=== PATIENT | female | born 1955 | race Caucasian/White ===

== ENCOUNTER 2017-01-21 05:53 | Emergency (ER) | payer OTHER ==
[2017-01-21 05:54] VITALS: BMI 25.6
[2017-01-21] MEDS ORDERED: Sodium Chloride 0.9% 1,000 ML IV ONE (06:11)
--- NOTE | 2017-01-21 06:11 | C.PDOC ---
History Of Present Illness Patient presents to the ER with a complaint of nausea, vomiting, diarrhea, and a dull, aching abdominal pain since night. Patient denies fever and chills. Time Seen by Provider: 01/21/17 06:11 Chief Complaint (Nursing): Abdominal Pain History Per: Patient History/Exam Limitations: no limitations Onset/Duration Of Symptoms: Days (Since night) Current Symptoms Are (Timing): Still Present Context: Other Severity: Moderate Pain Scale Rating Of: 4 Location Of Pain/Discomfort: Epigastric (Mid) Radiation Of Pain To:: None Quality Of Discomfort: Dull, Aching Associated Symptoms: Nausea, Vomiting, Diarrhea. denies: Fever, Chills Exacerbating Factors: None Alleviating Factors: None Recent travel outside of the [place]: No Additional History Per: Family Abnormal Vaginal Bleeding: No Past Medical History Reviewed: Historical Data, Nursing Documentation, Vital Signs Vital Signs: Last Vital Signs Temp 98.0 F 01/21/17 06:03 Pulse 91 H 01/21/17 06:03 Resp 16 01/21/17 06:03 BP 175/97 H 01/21/17 06:03 Pulse Ox 100 01/21/17 06:24 - Medical History PMH: Gastritis Surgical History: Endoscopy Family History: States: No Known Family Hx - Social History Hx Alcohol Use: No Hx Substance Use: No - Immunization History Hx Tetanus Toxoid Vaccination: No Hx Influenza Vaccination: No Hx Pneumococcal Vaccination: No Review Of Systems Constitutional: Negative for: Fever, Chills Eyes: Negative for: Redness ENT: Negative for: Mouth Pain Cardiovascular: Negative for: Chest Pain Respiratory: Negative for: Shortness of Breath Gastrointestinal: Positive for: Nausea, Vomiting, Abdominal Pain (Mid epigastric ), Diarrhea Genitourinary: Negative for: Dysuria Musculoskeletal: Negative for: Back Pain Skin: Negative for: Rash, Lesions, Jaundice, Bruising Neurological: Negative for: Weakness Psych: Negative for: Anxiety Physical Exam - Physical Exam Appears: Non-toxic Skin: Warm, Dry Eye(s): bilateral: Normal Inspection Oral Mucosa: Moist Neck: Supple Chest: Symmetrical, No Tenderness Cardiovascular: Rhythm Regular, No Murmur Respiratory: No Rales, No Rhonchi, No Wheezing Gastrointestinal/Abdominal: Soft, Tenderness (Mid epigastric) Back: Normal Inspection Extremity: Normal ROM Extremity: Bilateral: Atraumatic, Normal Color And Temperature Neurological/Psych: Oriented x3, Normal Speech, Normal Cognition Gait: Steady ED Course And Treatment O2 Sat by Pulse Oximetry: 100 (room air) Pulse Ox Interpretation: Normal Progress Note: Blood work and urinalysis ordered. Pepcid IVP, zofran IVP, and IV fluids administered. Disposition Counseled Patient/Family Regarding: Studies Performed, Diagnosis - Disposition Disposition Time: 06:11 Condition: FAIR - Clinical Impression Clinical Impression: Abdominal pain, Nausea - Scribe Statement The provider has reviewed the documentation as recorded by the Scribbrittany Grullon All medical record entries made by the Yadielibe were at my direction and personally dictated by me. I have reviewed the chart and agree that the record accurately reflects my personal performance of the history, physical exam, medical decision making, and the department course for this patient. I have also personally directed, reviewed, and agree with the discharge instructions and disposition. Physician Patient Turnover Patient Signed Over To: Sona Hines Handoff Comments: pending labs and disposition
[2017-01-21 06:35] LABS: BASO % 0.3 % (0.0-2.0); EOS # 0.2 K/uL (0.0-0.7); EOS % 2.5 % (0.0-4.0); HEMATOCRIT 37.2 % (34.0-47.0); LYMPH # 2.2 K/uL (1.0-4.3); LYMPH % 22.1 % (20.0-40.0); MEAN CELL VOLUME 86.5 fL (81.0-99.0); MEAN CORPUSCULAR HEMOGLOBIN 28.2 pg (27.0-31.0); MEAN CORPUSCULAR HGB CONC 32.5 g/dL (33.0-37.0); MEAN PLATELET VOLUME 7.8 fL (7.2-11.7); MONO # 0.5 K/uL (0.0-0.8); WHITE BLOOD COUNT 9.8 K/uL (4.8-10.8)
[2017-01-21] MEDS ORDERED: Sodium Chloride 0.9% 1,000 ML ONE (06:37)
[2017-01-21 06:48] LABS: CHLORIDE 107 mmol/L (98-107); POTASSIUM 3.8 mmol/L (3.6-5.2); SODIUM 139 mmol/L (132-148)
[2017-01-21 06:50] LABS: ALB/GLOB RATIO 1.2 (1.0-2.1); AST/SGOT 21 U/L (14-36); BILIRUBIN,TOTAL 0.5 mg/dL (0.2-1.3); CARBON DIOXIDE 21 mmol/L (22-30); GFR AFRICAN-AMERICAN > 60; TOTAL PROTEIN 6.6 g/dL (6.3-8.3)
[2017-01-21 06:51] LABS: ALKALINE PHOSPHATASE 84 U/L (38-126); ALT/SGPT 17 U/L (9-52); BLOOD UREA NITROGEN 11 mg/dL (7-17); CALCIUM 8.5 mg/dl (8.6-10.4); GLUCOSE,RANDOM 119 mg/dL (65-105)
[2017-01-21] MEDS ORDERED: Iodixanol 320 MG/ML 100 ML BOTTLE IV ONE (07:46)
[2017-01-21 08:09] LABS: RBC URINE 1 /hpf (0-3); URINE BILIRUBIN NEGATIVE (NEGATIVE); URINE BLOOD NEGATIVE (NEGATIVE); URINE COLOR Straw (YELLOW); URINE GLUCOSE (UA) NORMAL (Normal); URINE KETONE NEGATIVE (NEGATIVE); URINE LEUKOCYTE ESTERASE NEG Leu/uL (Negative); URINE PROTEIN NEGATIVE (NEGATIVE); URINE UROBILINOGEN NORMAL mg/dL (0.2-1.0); WBC URINE 1 /hpf (0-5)
[2017-01-21 08:22] VITALS: RESP 18
--- NOTE | 2017-01-21 09:31 | CT ---
CT abdomen and pelvis History: Mid epigastric abdominal pain Comparison: 02/12/2016 Technique: Multiple contiguous axial images were performed through the abdomen and pelvis with the use of intravenous contrast. Subsequently, sagittal and coronal reformatted images were obtained. This CT exam was performed using one or more of the following dose reduction techniques: Automated exposure control, adjustment of the mA and/or kV according to patient size, and/or use of iterative reconstruction technique. Findings: Mild focal nodularity in the medial aspect of the right middle lobe inferiorly. Bibasilar atelectasis. No pleural or pericardial effusion. Prominent liver with diffuse fatty infiltration. Gallbladder is preserved. Spleen is preserved. Adrenal glands demonstrate a small nodular calcification in the left adrenal gland measuring 1.7 millimeters. Pancreas is preserved. Small hiatal hernia. Right kidney: No calculi or hydronephrosis. Left Kidney: Upper pole 9 millimeter hypoechoic cyst demonstrating a Hounsfield unit attenuation of 17, indeterminate. 7 millimeter nonobstructive mid pole left renal calculus. Mild fullness of the left renal collecting system. Urinary bladder is preserved. Small amount of free fluid within the posterior pelvic cul-de-sac. Mild rectal wall thickening. Under distended portions of the left hemicolon with scattered areas of underdistention of the transverse and left hemicolon. Mild thickening of the cecum and proximal ascending colon. Appendix is within normal limits. Thickening and enhancement of the distal jejunum and ileum most prominent in the left mid abdomen where there is some resultant dilatation of the small bowel in the left upper abdomen measuring up to 3 centimeters. Some fecalization of bowel material is noted within the left upper abdomen. At this level the bowel appears somewhat torturous and looped in appearance. Prominent inflammatory mesenteric fat stranding noted with prominent mesenteric lymph nodes for example in the mid lower abdomen measuring up to 2.2 centimeters and 1.9 centimeters respectively. Degenerative changes in the spine. Impression: Prominent thickening of small bowel loops with edema and enhancement seen within the jejunum and ileum concerning for underlying acute infectious versus inflammatory versus ischemic change. Associated prominent dilatation of small bowel loops seen within the left fabian abdomen extending into the left upper abdomen measuring up to 3 centimeters with associated fecal stasis. This is somewhat tortuous and prominent in a looped configuration. Adjacent inflammatory mesenteric fat stranding. Adjacent prominent mesenteric lymph nodes. Fatty infiltration of the liver. Small hiatal hernia. 7 millimeter nonobstructive left renal calculus. Left renal cyst. Scattered areas of colonic underdistention and or mild thickening. Additional findings as above.
[2017-01-21 10:01] VITALS: BP 122/74; PULSE 72; TEMP 98.1; O2SAT 96
== END 2017-01-21 10:02 | disposition home or self-care (01) ==
LOC: C.ER 05:53
DX: R10.9 Unspecified abdominal pain (principal); R11.0 Nausea
CPT/HCPCS: 74177; 80053; 81001; 83690; 85025; 85610; 85730; 96361; 96374; 96375; 99285; J2405; J7040; Q9967

== ENCOUNTER 2017-05-24 21:36 | Emergency (ER) | payer OTHER ==
[2017-05-24 21:37] VITALS: BMI 25.6
[2017-05-24 21:56] VITALS: RESP 18
[2017-05-24] MEDS ORDERED: Sodium Chloride 0.9% 1,000 ML IV ONE (22:11)
--- NOTE | 2017-05-24 22:23 | C.PDOC ---
History Of Present Illness Patient brought by family c/o abdominal pain and vomiting that started after dinner tonight at 7pm. She is c/o severe epigastric pain with distention. She has no fever and no diarrhea. She had a normal bowel movement at 8pm. She felt well without complaints earlier in the day. She had a similar episode 01/2017 and was evaluated here and diagnosed with gastritis. She denies any associated difficulty breathing or chest pain. She has a history of pelvic endoscopic surgery done in [place] 10 years ago. Time Seen by Provider: 05/24/17 22:07 Chief Complaint (Nursing): Abdominal Pain History Per: Patient, Family History/Exam Limitations: no limitations Onset/Duration Of Symptoms: Hrs Current Symptoms Are (Timing): Still Present Severity: Severe Location Of Pain/Discomfort: Epigastric Radiation Of Pain To:: None Associated Symptoms: Nausea, Vomiting. denies: Fever, Diarrhea Exacerbating Factors: None Alleviating Factors: None Last Bowel Movement: Today Past Medical History Reviewed: Historical Data, Nursing Documentation, Vital Signs Vital Signs: Last Vital Signs Temp 98.9 F 05/24/17 21:54 Pulse 91 H 05/24/17 21:54 Resp 18 05/24/17 21:54 BP 149/95 H 05/24/17 21:54 Pulse Ox 99 05/24/17 22:42 - Medical History PMH: Gastritis Surgical History: Endoscopy Family History: States: Unknown Family Hx - Social History Hx Tobacco Use: No Hx Alcohol Use: No Hx Substance Use: No - Immunization History Hx Tetanus Toxoid Vaccination: No Hx Influenza Vaccination: No Hx Pneumococcal Vaccination: No Review Of Systems Except As Marked, All Systems Reviewed And Found Negative. Gastrointestinal: Positive for: Nausea, Vomiting, Abdominal Pain Physical Exam - Physical Exam Appears: In Acute Distress (moaning in pain) Skin: Normal Color, Warm, Dry Head: Atraumatic Eye(s): bilateral: Normal Inspection, PERRL, EOMI Oral Mucosa: Moist Chest: Symmetrical Cardiovascular: Rhythm Regular Respiratory: Normal Breath Sounds Gastrointestinal/Abdominal: Bowel Sounds, Soft, Tenderness (epigastric), Distention, No Guarding, No Rebound Neurological/Psych: Oriented x3, Normal Speech, Normal Cognition ED Course And Treatment - Laboratory Results Result Diagrams: 05/24/17 22:44 05/24/17 22:44 O2 Sat by Pulse Oximetry: 99 Disposition - Disposition Disposition Time: 00:43 Condition: STABLE Forms: [employer] [facility] (Fijian) - Clinical Impression Clinical Impression: Abdominal pain, Vomiting Physician Patient Turnover Patient Signed Over To: Jewel Sanders Handoff Comments: Pending CT
[2017-05-24] MEDS ORDERED: Iohexol 240 (50 ml) PO ONE (22:44)
[2017-05-24 22:47] LABS: BASO % 0.2 % (0.0-2.0); EOS # 0.2 K/uL (0.0-0.7); EOS % 1.4 % (0.0-4.0); HEMATOCRIT 38.6 % (34.0-47.0); LYMPH # 2.2 K/uL (1.0-4.3); LYMPH % 15.6 % (20.0-40.0); MEAN CELL VOLUME 87.2 fL (81.0-99.0); MEAN CORPUSCULAR HEMOGLOBIN 28.7 pg (27.0-31.0); MEAN CORPUSCULAR HGB CONC 32.9 g/dL (33.0-37.0); MEAN PLATELET VOLUME 7.6 fL (7.2-11.7); MONO # 0.6 K/uL (0.0-0.8); MONO % 4.5 % (0.0-10.0); RED CELL DISTRIBUTION WIDTH 13.8 % (11.5-14.5); WHITE BLOOD COUNT 13.8 K/uL (4.8-10.8)
[2017-05-24] MEDS ORDERED: Sodium Chloride 0.9% 1,000 ML ONE (22:47)
[2017-05-24 22:55] LABS: CHLORIDE 106 mmol/L (98-107); SODIUM 139 mmol/L (132-148)
[2017-05-24 22:56] LABS: POTASSIUM 3.7 mmol/L (3.6-5.2)
[2017-05-24 22:58] LABS: ALB/GLOB RATIO 1.4 (1.0-2.1); ALKALINE PHOSPHATASE 91 U/L (38-126); ALT/SGPT 33 U/L (9-52); AST/SGOT 21 U/L (14-36); BILIRUBIN,TOTAL 0.6 mg/dL (0.2-1.3); BLOOD UREA NITROGEN 9 mg/dL (7-17); CARBON DIOXIDE 21 mmol/L (22-30); GFR AFRICAN-AMERICAN > 60; GLUCOSE,RANDOM 114 mg/dL (65-105); TOTAL PROTEIN 7.1 g/dL (6.3-8.3)
[2017-05-24] MEDS ORDERED: Iohexol 240 (50 ml) ONE (23:03)
[2017-05-24] MEDS ORDERED: Iodixanol 320 MG/ML 100 ML BOTTLE IV ONE (23:33)
[2017-05-25 00:54] LABS: RBC URINE 10 /hpf (0-3); URINE BILIRUBIN NEGATIVE (NEGATIVE); URINE BLOOD 1+ (NEGATIVE); URINE COLOR Yellow (YELLOW); URINE GLUCOSE (UA) NORMAL (Normal); URINE KETONE NEGATIVE (NEGATIVE); URINE LEUKOCYTE ESTERASE NEG Leu/uL (Negative); URINE PROTEIN NEGATIVE (NEGATIVE); URINE UROBILINOGEN NORMAL mg/dL (0.2-1.0); WBC URINE 1 /hpf (0-5)
--- NOTE | 2017-05-25 02:07 | CT ---
EXAM: CT Abdomen and Pelvis With Intravenous Contrast EXAM DATE/TIME: 05/25/2017 12:13 AM CLINICAL HISTORY: 62 years old, female; Pain; Abdominal pain; Patient HX: 01-21-17; Additional info: Abd pain and weakness TECHNIQUE: Axial computed tomography images of the abdomen and pelvis with intravenous contrast. All CT scans at this facility use one or more dose reduction techniques, viz.: automated exposure control; ma/kV adjustment per patient size (including targeted exams where dose is matched to indication; i.e. head); or iterative reconstruction technique. Coronal and sagittal reformatted images were created and reviewed. CONTRAST: 100 mL of [id number] administered intravenously. COMPARISON: CT - ABD PELVIS IV CONTRAST ONLY 01/21/2017 8:11:24 AM FINDINGS: The liver is decreased in attenuation consistent with fatty infiltration. The spleen is normal. The pancreas is normal. No gallstones. Stable left renal cyst. There are dilated loops of jejunum in the left upper quadrant. The maximally dilated jejunal loop measures 4.5 cm in diameter and is filled with stool. Contrast does not progress beyond this loop. There is a transition from the dilated stool-filled loop to decompressed loops in the left upper pelvis. The transition occurs through a segment of thickened small bowel (axial series 3 images 90- 140). There is a loop of thickened distal ileum (axial series 3 images 135 through 147). There is prominent mucosal enhancement of the thickened jejunal and ileal loops. There are small scattered areas of haziness throughout the mesentery of the pelvis some of which are removed from the thickened loops. Several prominent lymph nodes are noted within the hazy mesentery. There is free fluid in the pelvis There is swirling of the vessels right upper quadrant images 65 through 85 unchanged. A normal appendix is identified axial series 2 images 38 through 45. IMPRESSION: Two segments of thickened small bowel with prominent mucosal enhancement as discussed above. The more proximal area of thickening in the jejunum results in partial obstruction with abrupt caliber change. While infectious/inflammatory process would certainly be possible, neoplasm would also be in differential diagnosis especially given the caliber change and followup is recommended. Scattered mesenteric haziness and lymph nodes throughout the pelvis, some of which are not in close approximation to the thickened loops.
[2017-05-25] MEDS ORDERED: Morphine 4 MG/ML VIAL IV PRN (02:27)
[2017-05-25] MEDS ORDERED: Dextrose 5%/0.45% NS 1,000 ML IV SCH (02:30)
[2017-05-25 03:31] VITALS: BP 101/66; PULSE 80; TEMP 98.5; O2SAT 97
--- NOTE | 2017-05-25 08:32 | RAD ---
PROCEDURE: Radiographs of the chest and abdomen (obstructive series) HISTORY: abd pain COMPARISON: No prior. TECHNIQUE: AP radiograph of the chest, with upright and supine radiographs of the abdomen. FINDINGS: CHEST: Lungs: Clear. Cardiovascular: Normal size heart. No pulmonary vascular congestion. Pleura: No pleural fluid. No pneumothorax. Other findings: None. ABDOMEN AND PELVIS: Bowel: A mid to left upper quadrant regional dilated small bowel loop is present - lumen 3.6 cm. Elsewhere are air-fluid levels in more normal appearing small-bowel loops. There is paucity of bowel gas in the inferior abdomen The gas-filled transverse colon appears normal . Free air: None. Bones: Thoracolumbar spondylosis, mild dextroscoliosis. Sclerotic SI joint arthrosis- iliac sided and bilateral hip arthrosis. Left hemipelvic phleboliths. Other findings: None. IMPRESSION: Mid to distal partial and/or intermittent small bowel obstruction needs to be considered. No complete small bowel obstruction. No free air. Continued close follow-up recommended .
== END 2017-05-25 03:25 | disposition short-term general hospital (02) ==
LOC: C.ER 21:36
DX: R11.10 Vomiting, unspecified (principal); R10.9 Unspecified abdominal pain
CPT/HCPCS: 74022; 74177; 80053; 81001; 83690; 85025; 96361; 96374; 96375; 99284; J2270; J2405; J7040; Q9966; Q9967

== ENCOUNTER 2017-06-19 22:11 | Emergency (ER) | payer OTHER ==
[2017-06-19 22:12] VITALS: BMI 25.6
[2017-06-19 22:29] VITALS: TEMP 97.8
[2017-06-19 22:37] LABS: BASO % 0.1 % (0.0-2.0); EOS % 0.2 % (0.0-4.0); HEMATOCRIT 41.7 % (34.0-47.0); LYMPH # 3.6 K/uL (1.0-4.3); LYMPH % 24.2 % (20.0-40.0); MEAN CELL VOLUME 87.1 fL (81.0-99.0); MEAN CORPUSCULAR HEMOGLOBIN 28.9 pg (27.0-31.0); MEAN CORPUSCULAR HGB CONC 33.2 g/dL (33.0-37.0); MEAN PLATELET VOLUME 7.3 fL (7.2-11.7); MONO # 0.9 K/uL (0.0-0.8); MONO % 5.8 % (0.0-10.0); RED CELL DISTRIBUTION WIDTH 13.7 % (11.5-14.5); WHITE BLOOD COUNT 14.9 K/uL (4.8-10.8)
[2017-06-19 22:42] LABS: RBC URINE 22 /hpf (0-3); TRANSITIONAL EPITHIAL < 1 /hpf (0-3); URINE BACTERIA OCC (<OCC); URINE BILIRUBIN NEGATIVE (NEGATIVE); URINE COLOR Yellow (YELLOW); URINE GLUCOSE (UA) NORMAL (Normal); URINE KETONE TRACE mg/dL (NEGATIVE); URINE LEUKOCYTE ESTERASE 1+ Leu/uL (Negative); URINE PROTEIN 1+ mg/dL (NEGATIVE); URINE UROBILINOGEN NORMAL mg/dL (0.2-1.0); WBC URINE 7 /hpf (0-5)
[2017-06-19 22:43] LABS: URINE BLOOD 2+ (NEGATIVE)
[2017-06-19 22:45] LABS: CHLORIDE 100 mmol/L (98-107)
[2017-06-19 22:46] LABS: POTASSIUM 3.5 mmol/L (3.6-5.2); SODIUM 134 mmol/L (132-148)
[2017-06-19 22:48] LABS: ALB/GLOB RATIO 1.3 (1.0-2.1); ALKALINE PHOSPHATASE 89 U/L (38-126); AST/SGOT 20 U/L (14-36); BILIRUBIN,TOTAL 0.8 mg/dL (0.2-1.3); BLOOD UREA NITROGEN 12 mg/dL (7-17); CARBON DIOXIDE 22 mmol/L (22-30); GFR AFRICAN-AMERICAN > 60; TOTAL PROTEIN 7.7 g/dL (6.3-8.3)
[2017-06-19] MEDS ORDERED: cefTRIAXone IV 1 gm in Dextros 50 ML IVPB ONE ×2 (22:48→22:56)
[2017-06-19 22:49] LABS: ALT/SGPT 29 U/L (9-52); CALCIUM 9.4 mg/dl (8.6-10.4); GLUCOSE,RANDOM 130 mg/dL (65-105)
--- NOTE | 2017-06-19 22:49 | C.PDOC ---
History Of Present Illness Patient presents to the ER with a complaint of abdominal pain, nausea, and vomiting. Patient states she saw Dr. Robert in the morning, she received bentyl, zofran, and protonix with no relief to symptoms. Patient has not been able to tolerate PO; denies fever or chills. Time Seen by Provider: 06/19/17 22:48 Chief Complaint (Nursing): Abdominal Pain History Per: Patient History/Exam Limitations: no limitations Onset/Duration Of Symptoms: Days Current Symptoms Are (Timing): Still Present Severity: Mild Pain Scale Rating Of: 4 Location Of Pain/Discomfort: Epigastric Radiation Of Pain To:: None Quality Of Discomfort: Unable To Describe Associated Symptoms: Nausea, Vomiting. denies: Fever, Chills Exacerbating Factors: None Alleviating Factors: None Recent travel outside of the [place] States: No Abnormal Vaginal Bleeding: No Past Medical History Reviewed: Historical Data, Nursing Documentation, Vital Signs Vital Signs: Last Vital Signs Temp 97.8 F 06/19/17 22:25 Pulse 80 06/20/17 00:24 Resp 16 06/20/17 00:24 BP 122/69 06/20/17 00:24 Pulse Ox 98 06/20/17 00:24 - Medical History PMH: Gastritis Surgical History: Endoscopy Family History: States: No Known Family Hx - Social History Hx Tobacco Use: No Hx Alcohol Use: No Hx Substance Use: No - Immunization History Hx Tetanus Toxoid Vaccination: No Hx Influenza Vaccination: No Hx Pneumococcal Vaccination: No Review Of Systems Constitutional: Negative for: Fever, Chills Gastrointestinal: Positive for: Nausea, Vomiting, Abdominal Pain Physical Exam - Physical Exam Appears: Non-toxic Skin: Warm, Dry Head: Normacephalic Oral Mucosa: Moist Chest: Symmetrical Cardiovascular: Rhythm Regular Respiratory: No Rales, No Rhonchi, No Wheezing Gastrointestinal/Abdominal: Soft, Tenderness (Mid epigastric) Neurological/Psych: Oriented x3 ED Course And Treatment - Laboratory Results Result Diagrams: 06/19/17 22:34 06/19/17 22:34 O2 Sat by Pulse Oximetry: 100 (room air) Pulse Ox Interpretation: Normal Progress Note: Blood work and urinalysis ordered. Pepcid, zofran, ceftriaxone, and IV fluids administered. Reevaluation Time: 00:40 Reassessment Condition: Improved Disposition Counseled Patient/Family Regarding: Studies Performed, Diagnosis, Need For Followup, Rx Given - Disposition Referrals: Mike Robert MD [Medical Doctor] - Disposition: HOME/ ROUTINE Disposition Time: 22:49 Condition: FAIR Additional Instructions: Please return if symptoms recur Prescriptions: Nitrofurantoin Macrocrystals [Macrobid] 1 cap PO BID #14 cap Instructions: Urinary Tract Infection in Women (DC) Forms: [employer] [facility] (Armenian) - Clinical Impression Clinical Impression: UTI (urinary tract infection) - Scribe Statement The provider has reviewed the documentation as recorded by the Scribbrittany Grullon All medical record entries made by the Yadielibe were at my direction and personally dictated by me. I have reviewed the chart and agree that the record accurately reflects my personal performance of the history, physical exam, medical decision making, and the department course for this patient. I have also personally directed, reviewed, and agree with the discharge instructions and disposition.
[2017-06-19] MEDS ORDERED: Sodium Chloride 0.9% 1,000 ML IV ONE (22:51)
[2017-06-19] MEDS ORDERED: Sodium Chloride 0.9% 1,000 ML ONE (22:56)
[2017-06-20 00:25] VITALS: BP 122/69; PULSE 80; RESP 16
[2017-06-20 00:43] VITALS: O2SAT 100
== END 2017-06-20 00:46 | disposition home or self-care (01) ==
LOC: C.ER 22:11
DX: N39.0 Urinary tract infection, site not specified (principal)
CPT/HCPCS: 36415; 80053; 81001; 83690; 85025; 96365; 96375; 99284; J0696; J2405; J7040

== ENCOUNTER 2017-06-20 07:03 | Emergency (ER) | payer OTHER ==
[2017-06-20 07:03] VITALS: BMI 25.6
[2017-06-20] MEDS ORDERED: Sodium Chloride 0.9% 1,000 ML IV ONE (07:49)
--- NOTE | 2017-06-20 07:49 | C.PDOC ---
History Of Present Illness VIA FAMILY PERSIST NVD, ABD PAIN SINCE LAST NIGHT. EVAL 06/19 FOR SAME, S/P ROCEPHIN @ 2300 AND ZOFRAN DX UTI. +MULT WATERY BM, LAST EPISODE [employer]. PSH CSECT. FAMILY STATES DIDNT HAVE CHANCE TO GET ABX SINCE DC THIS MORNING, PAIN HAD RESOLVED WHEN LEFT BUT NOW HAS RECURRED EXAM NONTOXIC ABD SOFT NT ND NO R/G GOOD TURGOR REMAINDE RNEG Time Seen by Provider: 06/20/17 07:31 Chief Complaint (Nursing): Female Genitourinary History Per: Patient History/Exam Limitations: no limitations Onset/Duration Of Symptoms: Days Current Symptoms Are (Timing): Still Present Quality Of Discomfort: "Pain" Associated Symptoms: Nausea, Vomiting, Diarrhea. denies: Fever, Back Pain, Urinary Symptoms Last Bowel Movement: Today Recent travel outside of the [place] States: No Past Medical History Reviewed: Historical Data, Nursing Documentation, Vital Signs Vital Signs: Last Vital Signs Temp 97.9 F 06/20/17 07:10 Pulse 75 06/20/17 09:17 Resp 20 06/20/17 09:17 BP 153/75 H 06/20/17 09:17 Pulse Ox 99 06/20/17 10:48 - Medical History PMH: Gastritis Surgical History: Endoscopy, Family History: States: Unknown Family Hx - Social History Hx Tobacco Use: No Hx Alcohol Use: No Hx Substance Use: No - Immunization History Hx Tetanus Toxoid Vaccination: No Hx Influenza Vaccination: No Hx Pneumococcal Vaccination: No Review Of Systems Except As Marked, All Systems Reviewed And Found Negative. Constitutional: Negative for: Fever, Chills Cardiovascular: Negative for: Chest Pain Respiratory: Negative for: Shortness of Breath Gastrointestinal: Positive for: Nausea, Vomiting, Abdominal Pain, Diarrhea. Negative for: Constipation Genitourinary: Negative for: Dysuria Skin: Negative for: Rash Physical Exam - Physical Exam Appears: Non-toxic Skin: Warm, Dry, Other (GOOD TURGOR) Head: Atraumatic, Normacephalic Oral Mucosa: Moist Chest: Symmetrical Cardiovascular: Rhythm Regular Respiratory: Normal Breath Sounds, No Rales, No Rhonchi, No Wheezing Gastrointestinal/Abdominal: Soft, No Tenderness, No Distention, No Guarding, No Rebound Back: Normal Inspection, No CVA Tenderness Extremity: Normal ROM, Capillary Refill (< 2 SEC) Neurological/Psych: Oriented x3, Normal Speech, Normal Cognition ED Course And Treatment - Laboratory Results Result Diagrams: 06/20/17 08:24 06/20/17 08:24 O2 Sat by Pulse Oximetry: 99 (RA) Pulse Ox Interpretation: Normal - CT Scan/US CT ABDOMEN/PELVIS Other Rad Studies (CT/US): Read By Radiologist, Radiology Report Reviewed CT/US Interpretation: IMPRESSION: Findings suggestive of a recurrent mid small bowel obstruction but currently closer to high-grade than partial or intermittent type pattern. Mural thickening is seen in segment distal to the obstruction and differs diagnosis of infectious or inflammatory or neoplasm remains in question. Given decreased thickening of the more distal small bowel segment infectious or inflammatory etiologies are favored over neoplasm significantly. Further clinical correlation is advised. No free air or abscess. Minimal ascites and mesenteric reaction are identified. Trace fluid is seen associated with the appendix which may be sympathetic to the bowel obstruction with appendicitis not favored. Clinically correlate nevertheless. Fatty liver again identified. 7mm calculus identified within the urinary bladder versus adjacent to the base. Please see discussion above. No obstructive uropathy bilaterally. Progress - Re-Evaluation Re-evaluation Note: 06/20/17 07:55 CT ABD/PELVIS ORDERED. IV FLUIDS, BENTYL, ZOFRAN GIVEN. 06/20/17 10:02 PT HAVING PERSISTENT VOMITING AND PAIN; PHENERGAN, MORPHINE ORDERED 06/20/17 10:57 NOW ASYMPT APPEARS COMFORTABLE. PT AND FAMILY ADVISED OF CT FINDINGS, NEED FOR ADMISSION. PT VOICES VERBAL UNDERSTANDING OF BENEFITS OF ADMISSION INCLUDING STABILIZATION AND EVALUATION. PT REFUSES ADMISSIONS UNDERSTANDS RISK INCLUDING DISABILITY, DETERIORATION AND . AMA SIGNED 06/20/17 11:06 D/W DR Arlyn ROBERT AWARE OF ER FINDINGS. STATES HE ADVISED PT AND FAMILY NEED FOR ADMISSION. IS AWARE PT IS LEAVING AMA - Data Reviewed Data Reviewed: Lab, Diagnostic imaging, Old records - Continuity of Care Discussed patient case with:: Patient, Family-HIPPA compliant Disposition Counseled Patient/Family Regarding: Studies Performed, Diagnosis, Need For Followup, Rx Given - Disposition Referrals: Mike Robert MD [Medical Doctor] - Disposition: AGAINST MEDICAL ADVICE Disposition Time: 11:00 Condition: STABLE Additional Instructions: YOU HAVE BEEN ADVISED OF YOUR ABNORMAL CAT SCAN FINDINGS AND HAVE BEEN OFFERED ADMISSION FOR FURTHER EVALUATION AND MANAGEMENT. YOU HAVE EXPRESSED UNDERSTANDING OF THE RISKS OF LEAVING INCLUDING DISABILITY, DETERIORATION AND . FOLLOW UP WITH YOUR PMD AMBER. Prescriptions: Ondansetron ODT [Zofran ODT] 4 mg PO TID PRN #12 odt PRN Reason: Nausea/Vomiting Instructions: Acute Nausea and Vomiting (ED), Abdominal Pain (ED) Forms: [employer] (Divehi) - Clinical Impression Clinical Impression: Nausea & vomiting, Abdominal pain, Abnormal abdominal CT scan - Scribe Statement The provider has reviewed the documentation as recorded by the Scribe SM All medical record entries made by the Scribe were at my direction and personally dictated by me. I have reviewed the chart and agree that the record accurately reflects my personal performance of the history, physical exam, medical decision making, and the department course for this patient. I have also personally directed, reviewed, and agree with the discharge instructions and disposition.
[2017-06-20] MEDS ORDERED: Sodium Chloride 0.9% 1,000 ML ONE (08:04)
[2017-06-20 08:22] LABS: VENOUS BLOOD GAS BASE EXCESS -0.5 mmol/L (0.0-2.0); VENOUS BLOOD GAS PCO2 34 mmHg (40-60); VENOUS BLOOD PH 7.44 (7.32-7.43)
[2017-06-20 08:29] LABS: BASO % 0.2 % (0.0-2.0); EOS % 0.2 % (0.0-4.0); HEMATOCRIT 40.1 % (34.0-47.0); LYMPH # 1.7 K/uL (1.0-4.3); LYMPH % 14.7 % (20.0-40.0); MEAN CORPUSCULAR HEMOGLOBIN 28.5 pg (27.0-31.0); MEAN CORPUSCULAR HGB CONC 32.8 g/dL (33.0-37.0); MEAN PLATELET VOLUME 7.4 fL (7.2-11.7); MONO # 0.9 K/uL (0.0-0.8); MONO % 7.5 % (0.0-10.0); RED CELL DISTRIBUTION WIDTH 13.6 % (11.5-14.5); WHITE BLOOD COUNT 11.5 K/uL (4.8-10.8)
[2017-06-20 08:44] LABS: CHLORIDE 100 mmol/L (98-107); POTASSIUM 3.7 mmol/L (3.6-5.2); SODIUM 133 mmol/L (132-148)
[2017-06-20 08:46] LABS: GFR AFRICAN-AMERICAN > 60
[2017-06-20 08:47] LABS: BLOOD UREA NITROGEN 10 mg/dL (7-17); CALCIUM 8.9 mg/dl (8.6-10.4); CARBON DIOXIDE 21 mmol/L (22-30); GLUCOSE,RANDOM 109 mg/dL (65-105)
[2017-06-20] MEDS ORDERED: Iodixanol 320 MG/ML 100 ML BOTTLE IV ONE (08:53)
[2017-06-20 09:53] VITALS: RESP 20
--- NOTE | 2017-06-20 10:44 | CT ---
PROCEDURE: CT Abdomen and Pelvis with contrast HISTORY: abd pain NVD COMPARISON: Abdomen pelvis CT with contrast 05/25/2017. TECHNIQUE: Contrast dose: Visipaque 320, 100 cc. Radiation dose: Total exam DLP = 332.61 mGy-cm. This CT exam was performed using one or more of the following dose reduction techniques: Automated exposure control, adjustment of the mA and/or kV according to patient size, and/or use of iterative reconstruction technique. FINDINGS: LOWER THORAX: No infiltrate or discrete mass appreciable as imaged. A small hiatal hernia is encountered. LIVER: Hepatic steatosis is again appreciate without discrete mass or prominent intrahepatic biliary dilatation. GALLBLADDER AND BILE DUCTS: The gallbladder again appears distended without others suspicious findings including cholelithiasis mural thickening. PANCREAS: Unremarkable. No gross lesion or ductal dilatation. SPLEEN: Unremarkable. ADRENALS: Unremarkable. No mass. KIDNEYS AND URETERS: A small left renal cyst is unchanged at the upper pole with a right kidney unremarkable. No obstructive uropathy bilaterally. VASCULATURE: Unremarkable. No aortic aneurysm. BOWEL: A recurrent pattern of mural thickening of the mid to distal small bowel loop is again appreciated though this may be a separate segment now affected. Proximal to this segment of thickening, there is dilatation of the small bowel up to 4.2 cm greatest dimension with stool identified at the most dilated short segment. Distal to this short segment of small bowel, the small bowel is collapsed immediately. Oral contrast was not given limiting the bowel evaluation. Limited mesenteric edema and ascites is seen in the central mesenteric close to this obstruction as well as somewhat distant. Trace fluid is seen in the right lower quadrant approaching the appendix which is felt to be secondary to the obstruction pattern rather than appendicitis as the appendix not appear thick-walled. Clinically correlate nevertheless. The stomach is partially decompressed and otherwise slightly filled with fluid. No free intrarenal gas identified. Lipomatous changes are seen at the ileocecal valve. APPENDIX: Please see bowel segment above. PERITONEUM: Included in bowel segment above. LYMPH NODES: Unremarkable. No enlarged lymph nodes. BLADDER: A 7 mm calculus appears to be at the left paracentral urinary bladder base though this may represent a large extra cystic pelvic calcification be pressed against the base and is a similar calcification is seen posterior lateral to the urinary bladder base with no left hydronephrosis or hydroureter appreciated at that time. None is appreciated currently. No similar calcification was seen in the left pelvocaliceal system previously as well. REPRODUCTIVE: Prior hysterectomy again evident. BONES: No acute fracture. OTHER FINDINGS: None. IMPRESSION: Findings suggestive of a recurrent mid small bowel obstruction but currently closer to high-grade than partial or intermittent type pattern. Mural thickening is seen in segment distal to the obstruction and differs diagnosis of infectious or inflammatory or neoplasm remains in question. Given decreased thickening of the more distal small bowel segment infectious or inflammatory etiologies are favored over neoplasm significantly. Further clinical correlation is advised. No free air or abscess. Minimal ascites and mesenteric reaction are identified. Trace fluid is seen associated with the appendix which may be sympathetic to the bowel obstruction with appendicitis not favored. Clinically correlate nevertheless. Fatty liver again identified. 7mm calculus identified within the urinary bladder versus adjacent to the base. Please see discussion above. No obstructive uropathy bilaterally.
[2017-06-20 11:22] VITALS: BP 109/72; PULSE 79; TEMP 98.1; O2SAT 100
== END 2017-06-20 11:25 | disposition left against medical advice (07) ==
LOC: C.ER 07:03
DX: R10.9 Unspecified abdominal pain (principal); R11.2 Nausea with vomiting, unspecified; R93.5 Abnormal findings on diagnostic imaging of other abdominal regions, including retroperitoneum
CPT/HCPCS: 74177; 80048; 82803; 85025; 96361; 96372; 96374; 96375; 99285; J0500; J2270; J2405; J2550; J7040; Q9967

== ENCOUNTER 2017-06-21 07:39 | Inpatient (IN) | payer OTHER ==
[2017-06-21 07:39] VITALS: BMI 25.6
[2017-06-21] MEDS ORDERED: Sodium Chloride 0.9% 1,000 ML IV ONE (08:00)
--- NOTE | 2017-06-21 08:18 | C.PDOC ---
History Of Present Illness 62 y/o female presents to ED with complaints of persistent abdominal pain with associated nausea for 2 days. Patient was seen at ED yesterday and had CT scan that showed high grade bowel obstruction but patient signed out AMA because symptoms had resolved. Patient comes to ED today because symptoms returned. Patient denies fever, chills, diarrhea, urinary symptoms or any other complaints at this time. Time Seen by Provider: 06/21/17 07:40 Chief Complaint (Nursing): Abdominal Pain History Per: Patient History/Exam Limitations: no limitations Onset/Duration Of Symptoms: Days Current Symptoms Are (Timing): Still Present Location Of Pain/Discomfort: Epigastric Radiation Of Pain To:: None Quality Of Discomfort: "Pain" Associated Symptoms: Nausea, Vomiting Past Medical History Reviewed: Historical Data, Nursing Documentation, Vital Signs Vital Signs: Last Vital Signs Temp 97.9 F 06/21/17 10:32 Pulse 71 06/21/17 10:32 Resp 20 06/21/17 10:32 BP 130/79 06/21/17 10:32 Pulse Ox 100 06/21/17 10:52 - Medical History PMH: Gastritis Surgical History: Endoscopy, Family History: States: No Known Family Hx - Social History Hx Tobacco Use: No Hx Alcohol Use: No Hx Substance Use: No - Immunization History Hx Tetanus Toxoid Vaccination: No Hx Influenza Vaccination: No Hx Pneumococcal Vaccination: No Review Of Systems Constitutional: Negative for: Fever, Chills Gastrointestinal: Positive for: Nausea, Abdominal Pain Genitourinary: Negative for: Dysuria, Hematuria Musculoskeletal: Negative for: Back Pain Skin: Negative for: Rash Physical Exam - Physical Exam Appears: Non-toxic, No Acute Distress Skin: Normal Color, Warm, Dry, No Rash Head: Atraumatic, Normacephalic Oral Mucosa: Moist Neck: Normal ROM, Supple Chest: Symmetrical Cardiovascular: Rhythm Regular Respiratory: Normal Breath Sounds, No Rales, No Rhonchi, No Wheezing Gastrointestinal/Abdominal: Soft, Tenderness (Upper abdomen), No Guarding, No Rebound Back: No CVA Tenderness Extremity: Normal ROM, No Pedal Edema Neurological/Psych: Oriented x3 ED Course And Treatment - Laboratory Results Result Diagrams: 06/21/17 08:26 06/21/17 08:26 Lab Interpretation: No Acute Changes ECG: Interpreted By Me ECG Rhythm: Sinus Bradycardia ECG Interpretation: No Acute Changes Rate From EC O2 Sat by Pulse Oximetry: 100 (RA) Pulse Ox Interpretation: Normal - Radiology CXR: Interpreted by Me CXR Interpretation: Yes: No Acute Disease - Other Rad No standard instances X-Ray: Interpreted by Me Interpretation: OBS series: dilated loops of bowel Progress Note: Treated with IVF NSS, morphine and zophran. Case discussed and patient evaluated by rn surgical who inserted NG tube. Case discussed with Dr Rondon and agrees to admit Reassessment Condition: Improved - Physician Consult Information Physician Contacted: Kiran Rondon Outcome Of Conversation: admit Medical Decision Making Medical Decision Making: Plan: * Called rn surgical to evaluate patient * Call out to Dr. Rondon surgeon station superintendent @08:12 Disposition Discussed With .: Kiran Rondon Doctor Will See Patient In The: Hospital - Disposition Disposition: HOSPITALIZED Disposition Time: 11:00 Condition: STABLE - POA Present On Arrival: None - Clinical Impression Clinical Impression: Small bowel obstruction, Nausea & vomiting, Abdominal pain, SBO (small bowel obstruction) - PA / TEXTILE WORKER / Resident Statement MD/DO has reviewed & agrees with the documentation as recorded. - Scribe Statement The provider has reviewed the documentation as recorded by the Reji Reddy All medical record entries made by the Reji were at my direction and personally dictated by me. I have reviewed the chart and agree that the record accurately reflects my personal performance of the history, physical exam, medical decision making, and the department course for this patient. I have also personally directed, reviewed, and agree with the discharge instructions and disposition. Decision To Admit - Pt Status Changed To: Hospital Disposition Of: Inpatient - Admit Certification Admit to Inpatient:: After my assessment, the patient will require hospitalization for at least two midnights. This is because of the severity of symptoms shown, intensity of services needed, and/or the medical risk in this patient being treated as an outpatient. - InPatient: Physician Admission Certification:: SBO - . Bed Request Type: Regular Admitting Physician: Kiran Rondon Patient Diagnosis: Small bowel obstruction, Nausea & vomiting, Abdominal pain, SBO (small bowel obstruction)
[2017-06-21] MEDS ORDERED: Sodium Chloride 0.9% 1,000 ML ONE (08:34)
[2017-06-21] MEDS ORDERED: Morphine 4 MG/ML VIAL ONE (08:36)
[2017-06-21 08:40] LABS: BASO % 0.1 % (0.0-2.0); HEMATOCRIT 41.4 % (34.0-47.0); LYMPH # 1.4 K/uL (1.0-4.3); LYMPH % 12.4 % (20.0-40.0); MEAN CORPUSCULAR HEMOGLOBIN 28.6 pg (27.0-31.0); MEAN CORPUSCULAR HGB CONC 32.9 g/dL (33.0-37.0); MEAN PLATELET VOLUME 7.8 fL (7.2-11.7); MONO # 0.9 K/uL (0.0-0.8); MONO % 7.8 % (0.0-10.0); RED CELL DISTRIBUTION WIDTH 13.6 % (11.5-14.5); WHITE BLOOD COUNT 11.7 K/uL (4.8-10.8)
[2017-06-21 08:45] LABS: RBC URINE 18 /hpf (0-3); URINE BILIRUBIN NEGATIVE (NEGATIVE); URINE BLOOD 2+ (NEGATIVE); URINE COLOR Yellow (YELLOW); URINE GLUCOSE (UA) NORMAL (Normal); URINE KETONE 2+ mg/dL (NEGATIVE); URINE LEUKOCYTE ESTERASE TRACE Leu/uL (Negative); URINE PROTEIN 2+ mg/dL (NEGATIVE); URINE UROBILINOGEN NORMAL mg/dL (0.2-1.0); WBC URINE 2 /hpf (0-5)
[2017-06-21 08:47] LABS: CHLORIDE 92 mmol/L (98-107)
[2017-06-21 08:48] LABS: POTASSIUM 3.7 mmol/L (3.6-5.2)
[2017-06-21 08:50] LABS: ALB/GLOB RATIO 1.3 (1.0-2.1); ALKALINE PHOSPHATASE 79 U/L (38-126); ALT/SGPT 34 U/L (9-52); AST/SGOT 34 U/L (14-36); BILIRUBIN,TOTAL 0.9 mg/dL (0.2-1.3); BLOOD UREA NITROGEN 10 mg/dL (7-17); CARBON DIOXIDE 22 mmol/L (22-30); GFR AFRICAN-AMERICAN > 60; GLUCOSE,RANDOM 129 mg/dL (65-105); TOTAL PROTEIN 7.7 g/dL (6.3-8.3)
[2017-06-21 08:51] LABS: CALCIUM 9.1 mg/dl (8.6-10.4)
[2017-06-21 08:56] LABS: SODIUM 128 mmol/L (132-148)
--- NOTE | 2017-06-21 09:14 | RAD ---
PROCEDURE: Radiographs of the chest and abdomen (obstructive series) HISTORY: Abd Pain COMPARISON: No prior. TECHNIQUE: AP radiograph of the chest, with upright and supine radiographs of the abdomen. FINDINGS: CHEST: Lungs: Clear. Cardiovascular: Normal size heart. No pulmonary vascular congestion. Pleura: No pleural fluid. No pneumothorax. Other findings: None. ABDOMEN AND PELVIS: Bowel: Unremarkable bowel gas pattern. No evidence of mechanical obstruction. Free air: None. Bones: Unremarkable. Other findings: None. IMPRESSION: Unremarkable radiographs of chest and abdomen. No evidence of mechanical bowel obstruction.
[2017-06-21] MEDS: Sodium Chloride 0.9% 1,000 ML IV SCH (10:35)
[2017-06-21] MEDS ORDERED: Phenol Topical 1.4% Throat Spray (180 ml) MT PRN (10:43)
--- NOTE | 2017-06-21 10:55 | CP.PCM.HP ---
History of Present Illness - History of Present Illness History of Present Illness: H/P for Dr. Rondon CC: Abdominal Pain HPI: Patient presents to the ED with a 3 day history of abdominal pain associated with N/V. She has been to the ED every day for the past three days and left every time after "feeling better" with medication. The pain has been other disla constant since its onset. Eating/drinking makes the pain worse and induces N/V. She has been unable to take in water PO since Monday night. Pain medication makes the pain better. She describes the pain as sharp and is associated with abdominal distension. The pain is diffuse with no radiation. She states it is a 9/10. Emesis is nonbloody, described as "whitish". Last BM was Monday which was diarrhea. Last formed BM was Monday. Denies Blood in stool. Multiple prior episodes. The first was 17 years ago that resolved spontaneously. Since that time she has had episodes every 4-5 months that also spontaneously resolve. The episodes have become more frequent this year occurring every 2 months. NGT placed in the the ER. Drained 200ml of nonbilious gastric contents. PMH: none PSH: Hysterectomy in [place] ~40y ago FH: None SH: Denies smoking, drinking Meds: none Allergies: NKA Present on Admission - Present on Admission Any Indicators Present on Admission: No History of DVT/PE: No History of Uncontrolled Diabetes: No Urinary Catheter: No Decubitus Ulcer Present: No History Surgical Site Infection Following: None Review of Systems - Constitutional Constitutional: As Per HPI - EENT Eyes: As Per HPI Ears: As Per HPI Nose/Mouth/Throat: As Per HPI - Breasts Breasts: As Per HPI - Cardiovascular Cardiovascular: As Per HPI - Respiratory Respiratory: As Per HPI - Gastrointestinal Gastrointestinal: As Per HPI - Genitourinary Genitourinary: As Per HPI - Reproductive: Female Reproductive:Female: As Per HPI - Menstruation Menstruation: As Per HPI - Musculoskeletal Musculoskeletal: As Per HPI - Integumentary Integumentary: As Per HPI - Neurological Neurological: As Per HPI - Psychiatric Psychiatric: As Per HPI - Endocrine Endocrine: As Per HPI - Hematologic/Lymphatic Hematologic: As Per HPI Past Patient History - Infectious Disease Hx of Infectious Diseases: None - Past Medical History & Family History Past Medical History?: No - Past Social History Smoking Status: Never Smoked - CARDIAC Hx Cardiac Disorders: No - PULMONARY Hx Respiratory Disorders: No - NEUROLOGICAL Hx Neurological Disorder: No - HEENT Hx HEENT Problems: No - RENAL Hx Chronic Kidney Disease: No - ENDOCRINE/METABOLIC Hx Endocrine Disorders: No - HEMATOLOGICAL/ONCOLOGICAL Hx Blood Disorders: No - INTEGUMENTARY Hx Dermatological Problems: No - MUSCULOSKELETAL/RHEUMATOLOGICAL Hx Musculoskeletal Disorders: No - GASTROINTESTINAL Hx Gastritis: Yes - GENITOURINARY/GYNECOLOGICAL Hx Genitourinary Disorders: No - PSYCHIATRIC Hx Substance Use: No - SURGICAL HISTORY Hx Tubal Ligation: Yes - ANESTHESIA Hx Anesthesia: Yes Hx Anesthesia Reactions: No Meds Allergies/Adverse Reactions: Allergies Allergy/AdvReac Type Severity Reaction Status Date / Time No Known Allergies Allergy Verified 06/21/17 07:47 Physical Exam - Constitutional Appears: Well, Non-toxic, No Acute Distress - Head Exam Head Exam: ATRAUMATIC, NORMAL INSPECTION, NORMOCEPHALIC - Eye Exam Eye Exam: EOMI Pupil Exam: NORMAL ACCOMODATION - ENT Exam ENT Exam: Mucous Membranes Moist - Neck Exam Neck exam: Positive for: Normal Inspection - Respiratory Exam Respiratory Exam: Clear to Auscultation Bilateral, NORMAL BREATHING PATTERN - Cardiovascular Exam Cardiovascular Exam: REGULAR RHYTHM - GI/Abdominal Exam GI & Abdominal Exam: Distended, Firm, Normal Bowel Sounds, Tenderness (most tender in the LLQ and LUQ but patient is diffusly tender) - Neurological Exam Neurological exam: Altered Results - Vital Signs Recent Vital Signs: Last Vital Signs Temp 97.9 F 06/21/17 10:32 Pulse 71 06/21/17 10:32 Resp 20 06/21/17 10:32 BP 130/79 06/21/17 10:32 Pulse Ox 97 06/21/17 10:32 - Labs Result Diagrams: 06/21/17 08:26 06/21/17 08:26 Labs: Laboratory Results - last 24 hr 06/21/17 06/21/17 06/21/17 08:26 08:26 08:26 WBC 11.7 H RBC 4.76 Hgb 13.6 Hct 41.4 MCV 87.0 MCH 28.6 MCHC 32.9 L RDW 13.6 Plt Count 419 H MPV 7.8 Neut % (Auto) 79.7 H Lymph % (Auto) 12.4 L [place] % (Auto) 7.8 Eos % (Auto) 0.0 Baso % (Auto) 0.1 Neut # 9.3 H Lymph # 1.4 Geary # 0.9 H Eos # 0.0 Baso # 0.0 Sodium 128 L Potassium 3.7 Chloride 92 L Carbon Dioxide 22 Anion Gap 17 BUN 10 Creatinine 0.7 Est GFR ( Amer) > 60 Est GFR (Non-Af Amer) > 60 Random Glucose 129 H Lactic Acid Calcium 9.1 Total Bilirubin 0.9 AST 34 ALT 34 Alkaline Phosphatase 79 Total Protein 7.7 Albumin 4.3 Globulin 3.4 Albumin/Globulin Ratio 1.3 Lipase 46 Urine Color Yellow Urine Clarity Clear Urine pH 6.0 Ur Specific [place] 1.024 Urine Protein 2+ H Urine Glucose (UA) Normal Urine Ketones 2+ H Urine Blood 2+ H Urine Nitrate Negative Urine Bilirubin Negative Urine Urobilinogen Normal Ur Leukocyte Esterase Trace Urine WBC (Auto) 2 Urine RBC (Auto) 18 H Ur Squamous Epith Cells < 1 06/21/17 08:26 WBC RBC Hgb Hct MCV MCH MCHC RDW Plt Count MPV Neut % (Auto) Lymph % (Auto) [place] % (Auto) Eos % (Auto) Baso % (Auto) Neut # Lymph # Geary # Eos # Baso # Sodium Potassium Chloride Carbon Dioxide Anion Gap BUN Creatinine Est GFR ( Amer) Est GFR (Non-Af Amer) Random Glucose Lactic Acid 1.9 Calcium Total Bilirubin AST ALT Alkaline Phosphatase Total Protein Albumin Globulin Albumin/Globulin Ratio Lipase Urine Color Urine Clarity Urine pH Ur Specific [place] Urine Protein Urine Glucose (UA) Urine Ketones Urine Blood Urine Nitrate Urine Bilirubin Urine Urobilinogen Ur Leukocyte Esterase Urine WBC (Auto) Urine RBC (Auto) Ur Squamous Epith Cells Assessment & Plan - Assessment and Plan (Free Text) Assessment: 62F with SBO Plan: * NGT, low intermittent * NPO * Abdominal Xray tomorrow * If not improving will consider laparotomy * Further reccs per Dr. Alcon Nicole PGY1 - Date & Time Date: 06/21/17 Time: 14:16
--- NOTE | 2017-06-21 11:21 | RAD ---
HISTORY: NGT placement COMPARISON: No prior. FINDINGS: LUNGS: No active pulmonary disease. PLEURA: No significant pleural effusion identified, no pneumothorax apparent. CARDIOVASCULAR: Cardiac silhouette appears borderline enlarged. No pulmonary vascular derangement identified. OSSEOUS STRUCTURES: No significant abnormalities. VISUALIZED UPPER ABDOMEN: Nasogastric tube is identified terminating at the left upper quadrant abdomen. OTHER FINDINGS: None. IMPRESSION: Borderline cardiomegaly. No pulmonary vascular derangement. No acute pulmonary disease appreciated. Nasogastric tube appears adequately placed.
--- NOTE | 2017-06-21 11:24 | CP.PCM.PN ---
Subjective - Date & Time of Evaluation Date of Evaluation: 06/21/17 Time of Evaluation: 11:24 - Subjective Subjective: abdomen is slightly distended and tender luq. no significant tympanism. no palpable masses. latest films do not show obstruction. plan- repeat xrays in am , and if signs of obstruction shows then will consider laparotomy since problem have come up a few times in the past. will evaluate daily Objective - Vital Signs/Intake and Output Vital Signs (last 24 hours): Temp Pulse Resp BP Pulse Ox 97.9 F 71 20 130/79 100 06/21/17 10:50 06/21/17 10:50 06/21/17 10:50 06/21/17 10:50 06/21/17 10:52 Intake and Output: 06/21/17 06/21/17 06:59 18:59 Intake Total 1000 Output Total 175 Balance 825 - Medications Medications: Current Medications Acetaminophen (Tylenol 325mg Tab) 650 mg PO Q6 PRN PRN Reason: Fever >100.4 F Famotidine (Pepcid) 20 mg PO BID [facility] Last Admin: 06/21/17 10:35 Dose: Not Given Hydromorphone HCl (Dilaudid) 0.5 mg IVP Q6H PRN PRN Reason: Pain, severe (8-10) Sodium Chloride (Sodium Chloride 0.9%) 1,000 mls @ 103 mls/hr IV .Q9H43M [facility] Last Admin: 06/21/17 10:35 Dose: 103 mls/hr Ondansetron HCl (Zofran Inj) 4 mg IVP Q6 PRN PRN Reason: Nausea/Vomiting Phenol/Menthol (Phenaseptic 1.4% Throat [place]) 0 ml MT BID PRN PRN Reason: Sore Throat - Labs Labs: 06/21/17 08:26 06/21/17 08:26
[2017-06-21] MEDS: HYDROmorphone 0.5 mg/0.5 ml ISec IVP PRN (11:54)
[2017-06-21] MEDS ORDERED: Iodixanol 320 MG/ML 100 ML BOTTLE IV ONE (19:05)
--- NOTE | 2017-06-21 21:24 | CT ---
EXAM: CT Abdomen and Pelvis With Intravenous Contrast EXAM DATE/TIME: 06/21/2017 5:53 PM CLINICAL HISTORY: 62 years old, female; Condition or disease; Intestinal condition; Obstruction; Additional info: R/O sbo TECHNIQUE: Axial computed tomography images of the abdomen and pelvis with intravenous contrast. All CT scans at this facility use one or more dose reduction techniques, viz.: automated exposure control; ma/kV adjustment per patient size (including targeted exams where dose is matched to indication; i.e. head); or iterative reconstruction technique. Coronal and sagittal reformatted images were created and reviewed. CONTRAST: 100 mL of visipaque 320 administered intravenously. COMPARISON: CT - ABD PELVIS PO IV CONTRAST 2017-05-25 01:12 FINDINGS: Lower thorax: Heart size is normal. Distal as this is collapsed around a nasogastric tube. There is now a small right pleural effusion. There is adjacent airspace disease. There is minimal scarring in the right middle lobe. Left base is clear. ABDOMEN: Liver: There is fatty infiltration of the liver. Gallbladder and bile ducts: There is a fluid fluid level in the gallbladder. Appearance suggests vicarious excretion of vascular contrast. Common duct is unremarkable. Pancreas: Pancreas is mildly atrophic. Spleen: unremarkable Adrenals: Right adrenal is unremarkable. There is a small left adrenal calcification, unchanged. Kidneys and ureters: There is a left renal cyst. Kidneys and ureters are otherwise unremarkable. Distal left ureteral stone seen on the prior study is now in the bladder . Stomach and bowel: Stomach is collapsed. Tip of the nasogastric tube is in the stomach. Rotation is normal. There are abnormal jejunal loops in the left upper quadrant. Proximal and mid jejunal distention has decreased. There is now wall and fold thickening. There is mild vascular congestion in the adjacent mesentery. Wall thickening decreases in mid pelvic small bowel loops . There is decreased small bowel distention. There is distal and terminal ileal wall and fold thickening, increased since yesterday's study.. There is mild hyperemia in the adjacent mesentery. There is cecal wall thickening.mucosal enhancement. Appendix is unremarkable. Colon is incompletely distended which limits evaluation. Appendix: See stomach and bowel PELVIS: Bladder: Partially distended bladder contains a small calcified stone. There is no bladder wall thickening. Reproductive: Uterus is absent. There are no adnexal masses. ABDOMEN and PELVIS: Intraperitoneal space: There are multiple phleboliths. There is free fluid in the pelvis.There is no free air. Bones/joints: There are degenerative changes in the osseus structures. Soft tissues: There is a small fat containing umbilical hernia. Vasculature: Vascular structures are unremarkable. Lymph nodes: There is no pathologic adenopathy. IMPRESSION: Enterocolitis with increasing small bowel wall and fold thickening since the prior study, bowel gas pattern is more suggestive of ileus than obstruction; Interval development of small right pleural effusion and pelvic ascites; no acute solid visceral abnormality Additional findings as described above.
[2017-06-22] MEDS: Sodium Chloride 0.9% 1,000 ML IV SCH ×2 (07:29→08:29)
[2017-06-22 07:33] LABS: EOS # 0.1 K/uL (0.0-0.7); LYMPH # 1.9 K/uL (1.0-4.3); MEAN CORPUSCULAR HGB CONC 33.6 g/dL (33.0-37.0); MONO # 0.6 K/uL (0.0-0.8); MONO % 10.3 % (0.0-10.0); RED CELL DISTRIBUTION WIDTH 13.7 % (11.5-14.5); WHITE BLOOD COUNT 6.3 K/uL (4.8-10.8)
[2017-06-22 07:45] LABS: BASO % 0.4 % (0.0-2.0); EOS % 1.4 % (0.0-4.0); LYMPH % 30.1 % (20.0-40.0); MEAN PLATELET VOLUME 7.8 fL (7.2-11.7)
[2017-06-22 07:46] LABS: HEMATOCRIT 34.4 % (34.0-47.0); MEAN CELL VOLUME 87.3 fL (81.0-99.0); MEAN CORPUSCULAR HEMOGLOBIN 29.3 pg (27.0-31.0)
[2017-06-22 07:50] LABS: CHLORIDE 101 mmol/L (98-107)
[2017-06-22 07:51] LABS: POTASSIUM 3.2 mmol/L (3.6-5.2); SODIUM 134 mmol/L (132-148)
[2017-06-22 07:53] LABS: ALB/GLOB RATIO 1.1 (1.0-2.1); BILIRUBIN,TOTAL 0.6 mg/dL (0.2-1.3); CARBON DIOXIDE 23 mmol/L (22-30); GFR AFRICAN-AMERICAN > 60; TOTAL PROTEIN 6.1 g/dL (6.3-8.3)
[2017-06-22 07:54] LABS: ALKALINE PHOSPHATASE 62 U/L (38-126); ALT/SGPT 27 U/L (9-52); AST/SGOT 18 U/L (14-36); BLOOD UREA NITROGEN 10 mg/dL (7-17); CALCIUM 8.1 mg/dl (8.6-10.4); GLUCOSE,RANDOM 78 mg/dL (65-105)
[2017-06-22] MEDS: HYDROmorphone 0.5 mg/0.5 ml ISec IVP PRN (08:24)
[2017-06-22] MEDS: Phenol Topical 1.4% Throat Spray (180 ml) MT PRN ×4 (09:35→21:26)
--- NOTE | 2017-06-22 10:35 | CP.PCM.PN ---
Subjective - Date & Time of Evaluation Date of Evaluation: 06/22/17 Time of Evaluation: 10:34 - Subjective Subjective: Surgery Progress Note for Dr. Rondon HPI: patient seen and examined at bedside. Doing well with no comploinats at this time. -BM, -Flatus. Says pain in her abdomen is minimal. Wants to get up and walk around. Objective - Vital Signs/Intake and Output Vital Signs (last 24 hours): Temp Pulse Resp BP Pulse Ox 98.3 F 67 20 117/73 97 06/22/17 08:13 06/22/17 08:13 06/22/17 08:13 06/22/17 08:13 06/22/17 08:13 Intake and Output: 06/22/17 06/22/17 06:59 18:59 Intake Total 1648 Output Total 900 Balance 748 - Medications Medications: Current Medications Acetaminophen (Tylenol 325mg Tab) 650 mg PO Q6 PRN PRN Reason: Fever >100.4 F Hydromorphone HCl (Dilaudid) 0.5 mg IVP Q6H PRN PRN Reason: Pain, severe (8-10) Last Admin: 06/22/17 08:24 Dose: 0.5 mg Sodium Chloride (Sodium Chloride 0.9%) 1,000 mls @ 103 mls/hr IV .Q9H43M [facility] Last Admin: 06/22/17 08:29 Dose: 103 mls/hr Potassium Chloride (Potassium Chloride 10 Meq/100 Ml) 10 meq in 100 mls @ 100 mls/hr IVPB Q1 [facility] Stop: 06/22/17 12:59 Last Admin: 06/22/17 09:36 Dose: 100 mls/hr Ondansetron HCl (Zofran Inj) 4 mg IVP Q6 PRN PRN Reason: Nausea/Vomiting Pantoprazole Sodium (Protonix Inj) 40 mg IVP DAILY [facility] Last Admin: 06/22/17 09:34 Dose: 40 mg Phenol/Menthol (Phenaseptic 1.4% Throat [place]) 0 ml MT Q2H PRN PRN Reason: NG TUBE DISCOMFORT Last Admin: 06/22/17 09:35 Dose: 5 sprays - Labs Labs: 06/22/17 07:09 06/22/17 07:09 - Constitutional Appears: Well, Non-toxic, No Acute Distress - Head Exam Head Exam: ATRAUMATIC, NORMAL INSPECTION, NORMOCEPHALIC - Eye Exam Eye Exam: EOMI - ENT Exam ENT Exam: Mucous Membranes Moist Additional comments: NGT in place draining dark red/brown fluid - Respiratory Exam Respiratory Exam: Clear to Ausculation Bilateral, NORMAL BREATHING PATTERN - GI/Abdominal Exam GI & Abdominal Exam: Soft, Tenderness (mild tenderness in the epigastrum). absent: Distended - Neurological Exam Neurological Exam: Alert, Awake, Oriented x3 - Psychiatric Exam Psychiatric exam: Normal Affect, Normal Mood - Skin Skin Exam: Dry, Intact, Normal Color, Warm Assessment and Plan - Assessment and Plan (Free Text) Assessment: 62F w/SBO Vs. Ileus Plan: * NGT * NPO * Monitor NGT output * Wait for return of bowel function * PT/ambulate * Pepcid * GI consult * Further recs per Dr. Alcon Nicole
--- NOTE | 2017-06-22 10:52 | CP.PCM.PN ---
Subjective - Date & Time of Evaluation Date of Evaluation: 06/22/17 Time of Evaluation: 10:51 - Subjective Subjective: recent ct shows no obstruction. to obtain consult from primary. no surgery for now Objective - Vital Signs/Intake and Output Vital Signs (last 24 hours): Temp Pulse Resp BP Pulse Ox 98.3 F 67 20 117/73 97 06/22/17 08:13 06/22/17 08:13 06/22/17 08:13 06/22/17 08:13 06/22/17 08:13 Intake and Output: 06/22/17 06/22/17 06:59 18:59 Intake Total 1648 Output Total 900 Balance 748 - Medications Medications: Current Medications Acetaminophen (Tylenol 325mg Tab) 650 mg PO Q6 PRN PRN Reason: Fever >100.4 F Hydromorphone HCl (Dilaudid) 0.5 mg IVP Q6H PRN PRN Reason: Pain, severe (8-10) Last Admin: 06/22/17 08:24 Dose: 0.5 mg Sodium Chloride (Sodium Chloride 0.9%) 1,000 mls @ 103 mls/hr IV .Q9H43M [facility] Last Admin: 06/22/17 08:29 Dose: 103 mls/hr Potassium Chloride (Potassium Chloride 10 Meq/100 Ml) 10 meq in 100 mls @ 100 mls/hr IVPB Q1 [facility] Stop: 06/22/17 12:59 Last Admin: 06/22/17 09:36 Dose: 100 mls/hr Ondansetron HCl (Zofran Inj) 4 mg IVP Q6 PRN PRN Reason: Nausea/Vomiting Pantoprazole Sodium (Protonix Inj) 40 mg IVP DAILY [facility] Last Admin: 06/22/17 09:34 Dose: 40 mg Phenol/Menthol (Phenaseptic 1.4% Throat [place]) 0 ml MT Q2H PRN PRN Reason: NG TUBE DISCOMFORT Last Admin: 06/22/17 09:35 Dose: 5 sprays - Labs Labs: 06/22/17 07:09 06/22/17 07:09
--- NOTE | 2017-06-22 19:02 | CP.PCM.CON ---
Past Patient History - Infectious Disease Hx of Infectious Diseases: None - Past Medical History & Family History Past Medical History?: No - Past Social History Smoking Status: Never Smoked - CARDIAC Hx Cardiac Disorders: No - PULMONARY Hx Respiratory Disorders: No - NEUROLOGICAL Hx Neurological Disorder: No - HEENT Hx HEENT Problems: No - RENAL Hx Chronic Kidney Disease: No - ENDOCRINE/METABOLIC Hx Endocrine Disorders: No - HEMATOLOGICAL/ONCOLOGICAL Hx Blood Disorders: No - INTEGUMENTARY Hx Dermatological Problems: No - MUSCULOSKELETAL/RHEUMATOLOGICAL Hx Musculoskeletal Disorders: No - GASTROINTESTINAL Hx Gastritis: Yes - GENITOURINARY/GYNECOLOGICAL Hx Genitourinary Disorders: No - PSYCHIATRIC Hx Substance Use: No - SURGICAL HISTORY Hx Tubal Ligation: Yes - ANESTHESIA Hx Anesthesia: Yes Hx Anesthesia Reactions: No Meds Allergies/Adverse Reactions: Allergies Allergy/AdvReac Type Severity Reaction Status Date / Time No Known Allergies Allergy Verified 06/21/17 07:47 - Medications Medications: Current Medications Acetaminophen (Tylenol 325mg Tab) 650 mg PO Q6 PRN PRN Reason: Fever >100.4 F Hydromorphone HCl (Dilaudid) 0.5 mg IVP Q6H PRN PRN Reason: Pain, severe (8-10) Last Admin: 06/22/17 08:24 Dose: 0.5 mg Sodium Chloride (Sodium Chloride 0.9%) 1,000 mls @ 103 mls/hr IV .Q9H43M [facility] Last Admin: 06/22/17 08:29 Dose: 103 mls/hr Ondansetron HCl (Zofran Inj) 4 mg IVP Q6 PRN PRN Reason: Nausea/Vomiting Pantoprazole Sodium (Protonix Inj) 40 mg IVP DAILY [facility] Last Admin: 06/22/17 09:34 Dose: 40 mg Phenol/Menthol (Phenaseptic 1.4% Throat [place]) 0 ml MT Q2H PRN PRN Reason: NG TUBE DISCOMFORT Last Admin: 06/22/17 17:32 Dose: 2 sprays Physical Exam - Constitutional Appears: Well - Head Exam Head Exam: ATRAUMATIC, NORMAL INSPECTION, NORMOCEPHALIC - Eye Exam Eye Exam: EOMI, Normal appearance, PERRL Pupil Exam: NORMAL ACCOMODATION, PERRL - ENT Exam ENT Exam: Mucous Membranes Moist, Normal Exam - Neck Exam Neck exam: Positive for: Normal Inspection - Respiratory Exam Respiratory Exam: Decreased Breath Sounds - Cardiovascular Exam Cardiovascular Exam: REGULAR RHYTHM, +S1, +S2 - GI/Abdominal Exam GI & Abdominal Exam: Diminished Bowel Sounds, Soft - Rectal Exam Rectal Exam: Deferred Results - Vital Signs Recent Vital Signs: Last Vital Signs Temp 98.3 F 06/22/17 15:00 Pulse 75 06/22/17 15:00 Resp 20 06/22/17 15:00 BP 111/71 06/22/17 15:00 Pulse Ox 99 06/22/17 15:00 - Labs Result Diagrams: 06/22/17 07:09 06/22/17 07:09 Labs: Laboratory Results - last 24 hr 06/21/17 06/22/17 06/22/17 20:00 07:09 07:09 WBC 6.3 RBC 3.94 Hgb 11.5 D Hct 34.4 MCV 87.3 MCH 29.3 MCHC 33.6 RDW 13.7 Plt Count 301 D MPV 7.8 Neut % (Auto) 57.8 Lymph % (Auto) 30.1 [place] % (Auto) 10.3 H Eos % (Auto) 1.4 Baso % (Auto) 0.4 Neut # 3.6 Lymph # 1.9 [place] # 0.6 Eos # 0.1 Baso # 0.0 Sodium 134 Potassium 3.2 L Chloride 101 Carbon Dioxide 23 Anion Gap 13 BUN 10 Creatinine 0.7 Est GFR ( Amer) > 60 Est GFR (Non-Af Amer) > 60 Random Glucose 78 Calcium 8.1 L Total Bilirubin 0.6 AST 18 ALT 27 Alkaline Phosphatase 62 Total Protein 6.1 L Albumin 3.1 L D Globulin 3.0 Albumin/Globulin Ratio 1.1 Procalcitonin < 0.05 L
[2017-06-23] MEDS: Sodium Chloride 0.9% 1,000 ML IV SCH ×3 (00:38→21:12)
--- NOTE | 2017-06-23 07:41 | CP.PCM.PN ---
Subjective - Date & Time of Evaluation Date of Evaluation: 06/23/17 Time of Evaluation: 07:35 - Subjective Subjective: PGY-[address] Breen's service: Pt seen and examined at bedside. Nursing reports no acute events overnight. Patient found resting comfortably in bed wit her two sisters at bedside. She denies abdominal pain, or episodes of N/V overnight. She admits to passing flatus twice overnight, but denies bowel movement. Pt states she is hungry and wants to attempt liquid diet. Patient is a 62 year old female, who denies PMHx, admitted on 06/21/17 for abdominal pain with associated N/V worsened with PO intake. Pt had multiple ED visits in the week prior to this admission for abdominal pain which resolved after ED treatment. She has been unable to take in water PO since Monday night. On admission, she described pain as sharp, 9/10 on severity scale, and is associated with abdominal distension. Last BM was non-bloody diarrhea last Monday. Last formed BM was Monday. Patient obstructed multiple times before. The first ~ 20 years ago that resolved spontaneously. Since that time she has had episodes every 4-5 months that have spontaneously resolved with conservative management. She notes more frequent occurrences this year occurring every 2 months. PMH: none PSH: Hysterectomy in [place] ~40y ago FH: None SH: Denies smoking, drinking Meds: none Allergies: NKA Objective - Vital Signs/Intake and Output Vital Signs (last 24 hours): Temp Pulse Resp BP Pulse Ox 98.4 F 72 20 115/74 99 06/23/17 00:22 06/23/17 00:22 06/23/17 00:22 06/23/17 00:22 06/23/17 00:22 Intake and Output: 06/23/17 06/23/17 06:59 18:59 Intake Total 1648 Output Total 200 Balance 1448 - Medications Medications: Current Medications Acetaminophen (Tylenol 325mg Tab) 650 mg PO Q6 PRN PRN Reason: Fever >100.4 F Hydromorphone HCl (Dilaudid) 0.5 mg IVP Q6H PRN PRN Reason: Pain, severe (8-10) Last Admin: 06/22/17 08:24 Dose: 0.5 mg Sodium Chloride (Sodium Chloride 0.9%) 1,000 mls @ 103 mls/hr IV .Q9H43M [facility] Last Admin: 06/23/17 00:38 Dose: 103 mls/hr Ondansetron HCl (Zofran Inj) 4 mg IVP Q6 PRN PRN Reason: Nausea/Vomiting Pantoprazole Sodium (Protonix Inj) 40 mg IVP DAILY [facility] Last Admin: 06/22/17 09:34 Dose: 40 mg Phenol/Menthol (Phenaseptic 1.4% Throat [place]) 0 ml MT Q2H PRN PRN Reason: NG TUBE DISCOMFORT Last Admin: 06/22/17 21:26 Dose: 2 sprays - Labs Labs: 06/22/17 07:09 06/22/17 07:09 - Additional Findings Additional findings: - Constitutional Appears: Well, Non-toxic, No Acute Distress - Head Exam Head Exam: ATRAUMATIC, NORMAL INSPECTION, NORMOCEPHALIC - Eye Exam Eye Exam: EOMI - ENT Exam ENT Exam: Mucous Membranes Moist - Respiratory Exam Respiratory Exam: Clear to Ausculation Bilateral, NORMAL BREATHING PATTERN - GI/Abdominal Exam GI & Abdominal Exam: Soft, Non-tenderness absent: Distended - Neurological Exam Neurological Exam: Alert, Awake, Oriented x3 - Psychiatric Exam Psychiatric exam: Normal Affect, Normal Mood - Skin Skin Exam: Dry, Intact, Normal Color, Warm Assessment and Plan - Assessment and Plan (Free Text) Plan: SBO vs. ileus Managed by surgical team, Dr. Rondon CT A/P (06/21/17): Enterocolitis w increasing small bowel wall and fold thickening since prior the prior study, bowel gas pattern more suggestive of ileus than obstruction. Interval development of small right pleural effusion and pelvic ascites, no acute solid visceral abnormality. (see full report) NGT removed Trial of CLD this AM Monitoring bowel function Advised to ambulate/PT Dr. Dillard, GI telecom sales consultant - see reccs Dilaudid 0.5mg IV Q6H Zofran 4mg IV Q6H NS @ 103cc/hr Prophylaxis SCDs Protonix 40mg IV Heparin 5000u Q12H Chele Tirado PGY-2 All medical management
[2017-06-23 07:52] LABS: BASO % 0.3 % (0.0-2.0); EOS # 0.2 K/uL (0.0-0.7); LYMPH # 1.8 K/uL (1.0-4.3); LYMPH % 22.2 % (20.0-40.0); MEAN CELL VOLUME 87.9 fL (81.0-99.0); MEAN CORPUSCULAR HEMOGLOBIN 29.1 pg (27.0-31.0); MEAN CORPUSCULAR HGB CONC 33.1 g/dL (33.0-37.0); MEAN PLATELET VOLUME 7.7 fL (7.2-11.7); MONO # 0.6 K/uL (0.0-0.8); MONO % 7.6 % (0.0-10.0); NRBC % 0.1 % (0.0-2.0); RED CELL DISTRIBUTION WIDTH 13.3 % (11.5-14.5); WHITE BLOOD COUNT 7.9 K/uL (4.8-10.8)
[2017-06-23 08:03] LABS: CHLORIDE 101 mmol/L (98-107)
[2017-06-23 08:06] LABS: ALB/GLOB RATIO 1.1 (1.0-2.1); CARBON DIOXIDE 16 mmol/L (22-30); TOTAL PROTEIN 6.1 g/dL (6.3-8.3)
[2017-06-23 08:10] LABS: ALKALINE PHOSPHATASE 62 U/L (38-126); ALT/SGPT 28 U/L (9-52); AST/SGOT 18 U/L (14-36); BILIRUBIN,TOTAL 0.6 mg/dL (0.2-1.3); BLOOD UREA NITROGEN 13 mg/dL (7-17); CALCIUM 8.2 mg/dl (8.6-10.4); GFR AFRICAN-AMERICAN > 60; GLUCOSE,RANDOM 57 mg/dL (65-105); SODIUM 130 mmol/L (132-148)
[2017-06-23 08:11] LABS: POTASSIUM 3.9 mmol/L (3.6-5.2)
--- NOTE | 2017-06-23 10:25 | CP.PCM.PN ---
Subjective - Date & Time of Evaluation Date of Evaluation: 06/23/17 Time of Evaluation: 10:22 - Subjective Subjective: Surgery Progress Note for Dr. Rondon HPI: Patient seen and examined at bedside. Abdominal pain is much improved. patient states she has been ambulating and passing gas. Denies a bowel movement yet. States she wants to try to eat. No other complaints at this time Objective - Vital Signs/Intake and Output Vital Signs (last 24 hours): Temp Pulse Resp BP Pulse Ox 98.3 F 62 21 120/78 98 06/23/17 08:08 06/23/17 08:08 06/23/17 08:08 06/23/17 08:08 06/23/17 08:08 Intake and Output: 06/23/17 06/23/17 06:59 18:59 Intake Total 1648 Output Total 200 Balance 1448 - Medications Medications: Current Medications Acetaminophen (Tylenol 325mg Tab) 650 mg PO Q6 PRN PRN Reason: Fever >100.4 F Hydromorphone HCl (Dilaudid) 0.5 mg IVP Q6H PRN PRN Reason: Pain, severe (8-10) Last Admin: 06/22/17 08:24 Dose: 0.5 mg Sodium Chloride (Sodium Chloride 0.9%) 1,000 mls @ 103 mls/hr IV .Q9H43M [facility] Last Admin: 06/23/17 00:38 Dose: 103 mls/hr Ondansetron HCl (Zofran Inj) 4 mg IVP Q6 PRN PRN Reason: Nausea/Vomiting Pantoprazole Sodium (Protonix Inj) [address] [facility] Last Admin: 06/22/17 09:34 Dose: 40 mg Phenol/Menthol (Phenaseptic 1.4% Throat [place]) 0 ml MT Q2H PRN PRN Reason: NG TUBE DISCOMFORT Last Admin: 06/22/17 21:26 Dose: 2 sprays - Labs Labs: 06/23/17 07:41 06/23/17 07:41 - Constitutional Appears: Well, Non-toxic, No Acute Distress - Head Exam Head Exam: ATRAUMATIC, NORMAL INSPECTION, NORMOCEPHALIC - Eye Exam Eye Exam: EOMI - ENT Exam ENT Exam: Mucous Membranes Moist - Neck Exam Neck Exam: Normal Inspection - Respiratory Exam Respiratory Exam: Clear to Ausculation Bilateral, NORMAL BREATHING PATTERN - Cardiovascular Exam Cardiovascular Exam: REGULAR RHYTHM - GI/Abdominal Exam GI & Abdominal Exam: Soft, Tenderness (mild in the epigastrum), Normal Bowel Sounds. absent: Distended - Extremities Exam Extremities Exam: absent: Joint Swelling, Tenderness - Back Exam Back Exam: absent: CVA tenderness (L), CVA tenderness (R) - Neurological Exam Neurological Exam: Alert, Awake, Oriented x3 - Psychiatric Exam Psychiatric exam: Normal Affect, Normal Mood - Skin Skin Exam: Dry, Intact, Normal Color, Warm Assessment and Plan - Assessment and Plan (Free Text) Assessment: 62F with SBO Plan: * NGT removed today * CLD * Will check if diet is tolerated * Continue to monitor for bowel function * ambulate * Further reccs per Dr. Alcon Nicole PGY1
--- NOTE | 2017-06-23 10:57 | CP.PCM.PN ---
Subjective - Date & Time of Evaluation Date of Evaluation: 06/23/17 Time of Evaluation: 10:56 - Subjective Subjective: much improved. ok to advance diet Objective - Vital Signs/Intake and Output Vital Signs (last 24 hours): Temp Pulse Resp BP Pulse Ox 98.3 F 62 21 120/78 98 06/23/17 08:08 06/23/17 08:08 06/23/17 08:08 06/23/17 08:08 06/23/17 08:08 Intake and Output: 06/23/17 06/23/17 06:59 18:59 Intake Total 1648 Output Total 200 Balance 1448 - Medications Medications: Current Medications Acetaminophen (Tylenol 325mg Tab) 650 mg PO Q6 PRN PRN Reason: Fever >100.4 F Hydromorphone HCl (Dilaudid) 0.5 mg IVP Q6H PRN PRN Reason: Pain, severe (8-10) Last Admin: 06/22/17 08:24 Dose: 0.5 mg Sodium Chloride (Sodium Chloride 0.9%) 1,000 mls @ 103 mls/hr IV .Q9H43M [facility] Last Admin: 06/23/17 10:36 Dose: 103 mls/hr Ondansetron HCl (Zofran Inj) 4 mg IVP Q6 PRN PRN Reason: Nausea/Vomiting Pantoprazole Sodium (Protonix Inj) 40 mg IVP DAILY [facility] Last Admin: 06/23/17 10:35 Dose: 40 mg Phenol/Menthol (Phenaseptic 1.4% Throat [place]) 0 ml MT Q2H PRN PRN Reason: NG TUBE DISCOMFORT Last Admin: 06/22/17 21:26 Dose: 2 sprays - Labs Labs: 06/23/17 07:41 06/23/17 07:41
[2017-06-23 16:48] VITALS: RESP 20
--- NOTE | 2017-06-23 17:23 | PN ---
DATE: LOCATION: [facility], bed A. SUBJECTIVE: This is a 62-year-old female seen and examined initially for GI consultation on 06/22/2017, as requested by the admitting MD, reexamined again today without reported nausea or vomiting, simply tolerating oral intake. NG tube had been removed. The entire chart is reviewed including but not limited to the most recent lab and radiology study results, current and previous medication list, current and previous medical events, and the patient's today's CBC is normal but found to have low sodium of 130 with low CO2 content of 16 indicative of metabolic acidosis with low glucose of 58, low calcium 8.2, with low albumin 3.2. Abdominal CAT scan done at the time of admission was reviewed again, reports and films are seen that is indicative of most likely acute enteritis with some colitis. PHYSICAL EXAMINATION: GENERAL: A 62-year-old female, appeared to be awake, alert, and oriented, seen with staff in the floor. VITAL SIGNS: The patient is afebrile with pulse of 66, respiratory rate 20 to 22, and blood pressure of 118/72. HEENT: Shows mildly dry oral mucoid membranes. Nonicteric sclerae. LUNGS: Few scattered crepitation. Decreased air entry at bases. HEART: Positive S1 and S2. ABDOMEN: Soft and slight distention with slight tenderness. No mass or organomegaly. No rebound tenderness or guarding. Bowel sounds are present. It has to be mentioned that the patient has been passing gas recently, but no reported recent bowel movements yet. EXTREMITIES: No significant edema, clubbing, or cyanosis. RECTAL: The patient refused. NEUROLOGIC: No new reported neurological deficits, sensory or motor. HEMATOLOGY: No reported active bleeding. IMPRESSION: 1. Acute gastroenteritis. 2. Left-sided colitis. 3. Intermittent mild bowel mild bowel obstruction. SUGGESTION: 1. Continue current management. 2. . 3. Advance diet. Dayo Wagoner MD cc: Dayo Wagoner MD
--- NOTE | 2017-06-23 23:41 | CP.PCM.PN ---
Subjective - Date & Time of Evaluation Date of Evaluation: 06/23/17 Objective - Vital Signs/Intake and Output Vital Signs (last 24 hours): Temp Pulse Resp BP Pulse Ox 98.3 F 65 20 123/79 99 06/23/17 16:00 06/23/17 16:00 06/23/17 16:00 06/23/17 16:00 06/23/17 16:00 Intake and Output: 06/23/17 06/24/17 18:59 06:59 Intake Total 1184 1074 Output Total 1 Balance 1184 1073 - Medications Medications: Current Medications Acetaminophen (Tylenol 325mg Tab) 650 mg PO Q6 PRN PRN Reason: Fever >100.4 F Acetaminophen (Tylenol 325mg Tab) 650 mg PO Q6 PRN PRN Reason: Headache Heparin Sodium (Porcine) (Heparin) 5,000 units SC Q12 [facility] Last Admin: 06/23/17 21:11 Dose: 5,000 units Hydromorphone HCl (Dilaudid) 0.5 mg IVP Q6H PRN PRN Reason: Pain, severe (8-10) Last Admin: 06/22/17 08:24 Dose: 0.5 mg Sodium Chloride (Sodium Chloride 0.9%) 1,000 mls @ 103 mls/hr IV .Q9H43M [facility] Last Admin: 06/23/17 21:12 Dose: 103 mls/hr Ondansetron HCl (Zofran Inj) 4 mg IVP Q6 PRN PRN Reason: Nausea/Vomiting Pantoprazole Sodium (Protonix Inj) 40 mg IVP DAILY [facility] Last Admin: 06/23/17 10:35 Dose: 40 mg Phenol/Menthol (Phenaseptic 1.4% Throat [place]) 0 ml MT Q2H PRN PRN Reason: NG TUBE DISCOMFORT Last Admin: 06/22/17 21:26 Dose: 2 sprays - Labs Labs: 06/23/17 07:41 06/23/17 07:41
[2017-06-24] MEDS: Sodium Chloride 0.9% 1,000 ML IV SCH (06:13)
[2017-06-24 07:15] LABS: BASO % 0.5 % (0.0-2.0); EOS # 0.4 K/uL (0.0-0.7); EOS % 6.2 % (0.0-4.0); HEMATOCRIT 35.4 % (34.0-47.0); LYMPH # 2.1 K/uL (1.0-4.3); LYMPH % 37.1 % (20.0-40.0); MEAN CELL VOLUME 87.8 fL (81.0-99.0); MEAN CORPUSCULAR HEMOGLOBIN 29.3 pg (27.0-31.0); MEAN CORPUSCULAR HGB CONC 33.4 g/dL (33.0-37.0); MEAN PLATELET VOLUME 8.2 fL (7.2-11.7); MONO # 0.5 K/uL (0.0-0.8); MONO % 8.4 % (0.0-10.0); NRBC % 0.1 % (0.0-2.0); RED CELL DISTRIBUTION WIDTH 13.3 % (11.5-14.5); WHITE BLOOD COUNT 5.7 K/uL (4.8-10.8)
[2017-06-24 07:58] LABS: CHLORIDE 106 mmol/L (98-107); POTASSIUM 3.4 mmol/L (3.6-5.2); SODIUM 135 mmol/L (132-148)
[2017-06-24 08:00] LABS: ALB/GLOB RATIO 1.4 (1.0-2.1); AST/SGOT 19 U/L (14-36); BILIRUBIN,TOTAL 0.4 mg/dL (0.2-1.3); CARBON DIOXIDE 21 mmol/L (22-30); GFR AFRICAN-AMERICAN > 60; TOTAL PROTEIN 5.5 g/dL (6.3-8.3)
[2017-06-24 08:01] LABS: ALKALINE PHOSPHATASE 67 U/L (38-126); ALT/SGPT 29 U/L (9-52); BLOOD UREA NITROGEN 6 mg/dL (7-17); CALCIUM 8.4 mg/dl (8.6-10.4); GLUCOSE,RANDOM 94 mg/dL (65-105)
[2017-06-24 08:27] VITALS: O2SAT 99
--- NOTE | 2017-06-24 11:56 | CP.PCM.PN ---
Subjective - Date & Time of Evaluation Date of Evaluation: 06/24/17 Time of Evaluation: 11:53 - Subjective Subjective: Surgery Progress Note for Dr. Rondon HPI: Patient seen and examined at bedside. Doing well with no complaints at this time. + BM, Tolerated Liquid diet. No nausea or vomiting. Objective - Vital Signs/Intake and Output Vital Signs (last 24 hours): Temp Pulse Resp BP Pulse Ox 97.6 F 58 L 20 101/73 99 06/24/17 08:26 06/24/17 08:26 06/24/17 08:26 06/24/17 08:26 06/24/17 08:26 Intake and Output: 06/24/17 06/24/17 06:59 18:59 Intake Total 2138 Output Total 1 Balance 2137 - Medications Medications: Current Medications Acetaminophen (Tylenol 325mg Tab) 650 mg PO Q6 PRN PRN Reason: Fever >100.4 F Acetaminophen (Tylenol 325mg Tab) 650 mg PO Q6 PRN PRN Reason: Headache Heparin Sodium (Porcine) (Heparin) 5,000 units SC Q12 [facility] Last Admin: 06/24/17 09:40 Dose: 5,000 units Hydromorphone HCl (Dilaudid) 0.5 mg IVP Q6H PRN PRN Reason: Pain, severe (8-10) Last Admin: 06/22/17 08:24 Dose: 0.5 mg Ondansetron HCl (Zofran Inj) 4 mg IVP Q6 PRN PRN Reason: Nausea/Vomiting Pantoprazole Sodium (Protonix Inj) 40 mg IVP DAILY [facility] Last Admin: 06/24/17 09:40 Dose: 40 mg Phenol/Menthol (Phenaseptic 1.4% Throat [place]) 0 ml MT Q2H PRN PRN Reason: NG TUBE DISCOMFORT Last Admin: 06/22/17 21:26 Dose: 2 sprays - Labs Labs: 06/24/17 07:04 06/24/17 07:04 - Constitutional Appears: Well, Non-toxic, No Acute Distress - Head Exam Head Exam: ATRAUMATIC, NORMAL INSPECTION, NORMOCEPHALIC - Eye Exam Eye Exam: EOMI Pupil Exam: NORMAL ACCOMODATION - ENT Exam ENT Exam: Mucous Membranes Moist - Neck Exam Neck Exam: Full ROM - Respiratory Exam Respiratory Exam: Clear to Ausculation Bilateral, NORMAL BREATHING PATTERN - Cardiovascular Exam Cardiovascular Exam: REGULAR RHYTHM - GI/Abdominal Exam GI & Abdominal Exam: Soft, Normal Bowel Sounds. absent: Distended, Tenderness - Extremities Exam Extremities Exam: absent: Joint Swelling, Tenderness - Neurological Exam Neurological Exam: Alert, Awake, Oriented x3 - Psychiatric Exam Psychiatric exam: Normal Affect, Normal Mood - Skin Skin Exam: Dry, Intact, Normal Color, Warm Assessment and Plan - Assessment and Plan (Free Text) Assessment: 62F with SBO Plan: * Patient having BM and tolerating diet, advance to regular diet today * If diet tolerated can be D/C * Further reccs per Dr. Alcon Nicole PGY1
--- NOTE | 2017-06-24 14:12 | PN ---
DATE: LOCATION: [facility] bed A. SUBJECTIVE: This 62-year-old female seen and examined in rounds without significant reported clinical changes, somewhat tolerating oral intake well without reported active bleeding. It has to be mentioned that the case discussed with the staff in the floor and the patient clinically is improving. LABORATORY DATA: Most recent lab result showed normal CBC with low potassium of 3.4, low CO2 content of 21 indicative of metabolic acidosis, but improving gradually with low calcium 8.4, low albumin 3.2, and low total protein 5.5. PHYSICAL EXAMINATION: GENERAL: A 62-year-old female. VITAL SIGNS: Afebrile with heart rate of 60, respiratory rate 20 to 22, blood pressure of 110/76. HEENT: Showed pale, dry oral mucoid membrane. Nonicteric sclerae. HEART: Positive S1 and S2. LUNGS: Few scattered crepitation. Decreased air entry at bases. ABDOMEN: Soft, slight distention. No mass or organomegaly. No rebound tenderness or guarding. RECTAL: The patient refused. EXTREMITIES: Without edema, clubbing, or cyanosis. NEUROLOGIC: No reported new neurological deficits, sensory or motor. IMPRESSION: 1. Acute gastritis. 2. Acute enteritis. 3. Left-sided colitis. 4. Mild partial bowel obstruction, intermittent. SUGGESTION: 1. Gradually advance diet. 2. The patient may need endoscopic evaluation of her GI tract when she is more stable clinically and after a backward preparation. Dayo Wagoner MD cc: Dayo Wagoner MD
[2017-06-24] MEDS ORDERED: Potassium Chloride 20 mEq ER Tab PO STA (14:42)
--- NOTE | 2017-06-24 14:51 | CP.PCM.PN ---
Subjective - Date & Time of Evaluation Date of Evaluation: 06/24/17 Time of Evaluation: 07:20 - Subjective Subjective: clinically same Objective - Vital Signs/Intake and Output Vital Signs (last 24 hours): Temp Pulse Resp BP Pulse Ox 97.6 F 58 L 20 101/73 99 06/24/17 08:26 06/24/17 08:26 06/24/17 08:26 06/24/17 08:26 06/24/17 08:26 Intake and Output: 06/24/17 06/24/17 06:59 18:59 Intake Total 2138 Output Total 1 Balance 2137 - Medications Medications: Current Medications Acetaminophen (Tylenol 325mg Tab) 650 mg PO Q6 PRN PRN Reason: Fever >100.4 F Acetaminophen (Tylenol 325mg Tab) 650 mg PO Q6 PRN PRN Reason: Headache Heparin Sodium (Porcine) (Heparin) 5,000 units SC Q12 [facility] Last Admin: 06/24/17 09:40 Dose: 5,000 units Hydromorphone HCl (Dilaudid) 0.5 mg IVP Q6H PRN PRN Reason: Pain, severe (8-10) Last Admin: 06/22/17 08:24 Dose: 0.5 mg Ondansetron HCl (Zofran Inj) 4 mg IVP Q6 PRN PRN Reason: Nausea/Vomiting Pantoprazole Sodium (Protonix Inj) 40 mg IVP DAILY [facility] Last Admin: 06/24/17 09:40 Dose: 40 mg Phenol/Menthol (Phenaseptic 1.4% Throat [place]) 0 ml MT Q2H PRN PRN Reason: NG TUBE DISCOMFORT Last Admin: 06/22/17 21:26 Dose: 2 sprays - Labs Labs: 06/24/17 07:04 06/24/17 07:04 Assessment and Plan - Assessment and Plan (Free Text) Plan: Spoke to the family at length yesterday and today Supplement potassium We may start the patient has been reluctant as patient tends to run low potassium Probably he may need to do the workup as a hypokalemia Patient persistently and often he has a sub-small bowel obstructions and discussed with the family continues
--- NOTE | 2017-06-24 15:37 | CP.PCM.DIS ---
Provider - Provider Date of Admission: 06/21/17 09:21 Attending physician: Kiran Rondon MD Time Spent in preparation of Discharge (in minutes): 30 Diagnosis - Discharge Diagnosis (1) Small bowel obstruction Status: Acute Hospital Course - Lab Results Lab Results: Most Recent Lab Values WBC 5.7 K/uL (4.8-10.8) 06/24/17 07:04 RBC 4.03 Mil/uL (3.80-5.20) 06/24/17 07:04 Hgb 11.8 g/dL (11.0-16.0) 06/24/17 07:04 Hct 35.4 % (34.0-47.0) 06/24/17 07:04 MCV 87.8 fL (81.0-99.0) 06/24/17 07:04 MCH 29.3 pg (27.0-31.0) 06/24/17 07:04 MCHC 33.4 g/dL (33.0-37.0) 06/24/17 07:04 RDW 13.3 % (11.5-14.5) 06/24/17 07:04 Plt Count 361 K/uL (130-400) 06/24/17 07:04 MPV 8.2 fL (7.2-11.7) 06/24/17 07:04 Neut % (Auto) 47.8 % (50.0-75.0) L 06/24/17 07:04 Lymph % (Auto) 37.1 % (20.0-40.0) 06/24/17 07:04 [place] % (Auto) 8.4 % (0.0-10.0) 06/24/17 07:04 Eos % (Auto) 6.2 % (0.0-4.0) H 06/24/17 07:04 Baso % (Auto) 0.5 % (0.0-2.0) 06/24/17 07:04 Neut # 2.7 K/uL (1.8-7.0) 06/24/17 07:04 Lymph # 2.1 K/uL (1.0-4.3) 06/24/17 07:04 [place] # 0.5 K/uL (0.0-0.8) 06/24/17 07:04 Eos # 0.4 K/uL (0.0-0.7) 06/24/17 07:04 Baso # 0.0 K/uL (0.0-0.2) 06/24/17 07:04 Sodium 135 mmol/L (132-148) 06/24/17 07:04 Potassium 3.4 mmol/L (3.6-5.2) L 06/24/17 07:04 Chloride 106 mmol/L (98-107) 06/24/17 07:04 Carbon Dioxide 21 mmol/L (22-30) L 06/24/17 07:04 Anion Gap 11 (10-20) 06/24/17 07:04 BUN 6 mg/dL (7-17) L 06/24/17 07:04 Creatinine 0.7 mg/dL (0.7-1.2) 06/24/17 07:04 Est GFR ( Amer) > 60 06/24/17 07:04 Est GFR (Non-Af Amer) > 60 06/24/17 07:04 Random Glucose 94 mg/dL (65-105) 06/24/17 07:04 Lactic Acid 1.9 mmol/L (0.7-2.1) 06/21/17 08:26 Calcium 8.4 mg/dl (8.6-10.4) L 06/24/17 07:04 Total Bilirubin 0.4 mg/dL (0.2-1.3) 06/24/17 07:04 AST 19 U/L (14-36) 06/24/17 07:04 ALT 29 U/L (9-52) 06/24/17 07:04 Alkaline Phosphatase 67 U/L (38-126) 06/24/17 07:04 Total Protein 5.5 g/dL (6.3-8.3) L 06/24/17 07:04 Albumin 3.2 g/dL (3.5-5.0) L 06/24/17 07:04 Globulin 2.3 gm/dL (2.2-3.9) 06/24/17 07:04 Albumin/Globulin Ratio 1.4 (1.0-2.1) 06/24/17 07:04 Lipase 46 U/L (23-300) 06/21/17 08:26 Procalcitonin < 0.05 NG/ML (0.19-0.49) L 06/21/17 20:00 Urine Color Yellow (YELLOW) 06/21/17 08:26 Urine Clarity Clear (Clear) 06/21/17 08:26 Urine pH 6.0 (5.0-8.0) 06/21/17 08:26 Ur Specific [place] 1.024 (1.003-1.030) 06/21/17 08:26 Urine Protein 2+ mg/dL (NEGATIVE) H 06/21/17 08:26 Urine Glucose (UA) Normal mg/dL (Normal) 06/21/17 08:26 Urine Ketones 2+ mg/dL (NEGATIVE) H 06/21/17 08:26 Urine Blood 2+ (NEGATIVE) H 06/21/17 08:26 Urine Nitrate Negative (NEGATIVE) 06/21/17 08:26 Urine Bilirubin Negative (NEGATIVE) 06/21/17 08:26 Urine Urobilinogen Normal mg/dL (0.2-1.0) 06/21/17 08:26 Ur Leukocyte Esterase Trace [place]/uL (Negative) 06/21/17 08:26 Urine WBC (Auto) 2 /hpf (0-5) 06/21/17 08:26 Urine RBC (Auto) 18 /hpf (0-3) H 06/21/17 08:26 Ur Squamous Epith Cells < 1 /hpf (0-5) 06/21/17 08:26 - Hospital Course Hospital Course: 62F presented to ED w. abd pain 2/2 SBO. Pt responded to conservative management /bowel rest. She is currently tolerating regular diet, She is passing flatus and having BM. She states that she would like to go home. She is clear for D/C from surgical standpoint. - Date & Time of H&P Date of H&P: 06/21/17 Discharge Exam - Head Exam Head Exam: ATRAUMATIC, NORMAL INSPECTION, NORMOCEPHALIC - Eye Exam Eye Exam: EOMI. absent: Scleral icterus - ENT Exam ENT Exam: Mucous Membranes Moist - Neck Exam Neck exam: Full Rom - Respiratory Exam Respiratory Exam: NORMAL BREATHING PATTERN. absent: Accessory Muscle Use, Respiratory Distress - GI/Abdominal Exam GI & Abdominal Exam: Soft. absent: Distended, Firm, Guarding, Rebound, Rigid, Tenderness - Neurological Exam Neurological exam: Alert, Oriented x3 - Psychiatric Exam Psychiatric exam: Normal Affect, Normal Mood - Skin Skin Exam: Dry, Normal Color, Warm Discharge Plan - Follow Up Plan Condition: STABLE Disposition: HOME/ ROUTINE Patient education suggested?: Yes Instructions: Bowel Obstruction (DC) Additional Instructions: Activity and diet as tolerated. Follow up wPhoebe Rondon in 1-2 weeks. Return to ED if symptoms worsen. Referrals: Kiran Rondon MD [Staff Provider] -
[2017-06-24 15:44] VITALS: BP 120/77; PULSE 65; TEMP 98.2
--- NOTE | 2017-06-24 17:22 | CP.PCM.PN ---
Subjective - Date & Time of Evaluation Date of Evaluation: 06/24/17 Time of Evaluation: 07:20 - Subjective Subjective: clinically same Objective - Vital Signs/Intake and Output Vital Signs (last 24 hours): Temp Pulse Resp BP Pulse Ox 98.2 F 65 20 120/77 99 06/24/17 15:00 06/24/17 15:00 06/24/17 15:00 06/24/17 15:00 06/24/17 15:00 Intake and Output: 06/24/17 06/24/17 06:59 18:59 Intake Total 2138 1324 Output Total 1 Balance 2137 1324 - Medications Medications: Current Medications Acetaminophen (Tylenol 325mg Tab) 650 mg PO Q6 PRN PRN Reason: Fever >100.4 F Acetaminophen (Tylenol 325mg Tab) 650 mg PO Q6 PRN PRN Reason: Headache Heparin Sodium (Porcine) (Heparin) 5,000 units SC Q12 [facility] Last Admin: 06/24/17 09:40 Dose: 5,000 units Hydromorphone HCl (Dilaudid) 0.5 mg IVP Q6H PRN PRN Reason: Pain, severe (8-10) Last Admin: 06/22/17 08:24 Dose: 0.5 mg Ondansetron HCl (Zofran Inj) 4 mg IVP Q6 PRN PRN Reason: Nausea/Vomiting Pantoprazole Sodium (Protonix Inj) 40 mg IVP DAILY [facility] Last Admin: 06/24/17 09:40 Dose: 40 mg Phenol/Menthol (Phenaseptic 1.4% Throat [place]) 0 ml MT Q2H PRN PRN Reason: NG TUBE DISCOMFORT Last Admin: 06/22/17 21:26 Dose: 2 sprays - Labs Labs: 06/24/17 07:04 06/24/17 07:04
--- NOTE | 2017-06-25 00:14 | CON ---
DATE: 06/22/2017 LOCATION: #350, bed #A. From Dr. Wagoner to Dr. Rondon. I was called for GI consultation by the admitting medical team as well as the primary MDs. The entire chart is reviewed. The patient is fully examined on 06/22/2017. All the available lab and radiology study results, current and previous medication lists, current and the previous medical events, allergy to medication list are seen. Case discussed with the staff at length in the floor about my GI evaluation. HISTORY OF PRESENT ILLNESS: This is a 62-year-old female who was admitted to the hospital through the emergency room with main complaint of persistent abdominal pain, recurrent episode of nausea, dyspepsia, generalized weakness and malaise with reported recent history of CAT scan of the abdomen done indicative of possible high-grade obstruction of the small bowel as reported. her symptoms apparently were resolved at that time. No reported chest pain. Significant complaint of shortness of breath, chills, fever or reported active bleeding or palpitation. PAST MEDICAL HISTORY: Including mainly but not limited to, 1. Peptic ulcer disease. 2. . 3. Apparently, the patient had upper endoscopy, actual report not available at the time of my examination. FAMILY HISTORY: Unknown. SOCIAL HISTORY: No reported recent history of cigarette smoking or alcohol intake. CURRENT MEDICATIONS: Medication list post admission is seen. DIAGNOSTIC STUDIES: After being admitted to the hospital, the patient had abdominal and pelvic CAT scan, reports are seen. Initial blood workup at the time of the admission showed leucocytosis of 11.7 with normal hemoglobin and hematocrit with thrombocytes of 419. Elevated blood glucose level of 129 with low sodium of 128. Initial abdominal CAT scan showed evidence of also dilated loops. PHYSICAL EXAMINATION: GENERAL: A 62-year-old female. VITAL SIGNS: Afebrile with pulse of 68, respiratory rate 20 to 22 with blood pressure 124/76. HEENT: Shows pale, dry oral mucous membrane, mildly, but nonicteric sclerae. LYMPH NODES: No lymphadenitis or no lymphadenopathy. LUNGS: Mild scattered crepitations with decreased air entry at bases. HEART: Positive S1 and S2. ABDOMEN: Mildly soft with mild distension. NG tube had been placed since admission. Bowel sounds are hypoactive. No mass or organomegaly. No rebound tenderness or guarding. RECTAL EXAMINATION: The patient refused. EXTREMITIES: Without significant edema, clubbing or cyanosis. NEUROLOGIC: No reported new neurological deficits, sensory or motor. IMPRESSION: 1. Intermittent partial small-bowel obstruction of unclear etiology, that could be however from section surgery. 2. Re-exacerbation of peptic ulcer disease. 3. The possibility of acute gastroenteritis with an ileus was raised. 4. Known history of status post section. SUGGESTIONS: 1. Agree with your plan. 2. Reglan IV. 3. Complete stool workup. 4. The patient may need upper GI with small bowel follow-through if her symptoms persist and the CAT scan to be reviewed again with surgical product sales consultant as well as radiology staff. 5. Cancer markers. 6. Further recommendation to follow. 7. Proton pump inhibitors IV. 8. Peripheral hyperalimentation. Thank you for letting me to participate in your patient's case management. Dayo Wagoner MD cc: Dayo Wagoner MD
--- NOTE | 2017-06-26 13:28 | CARD ---
APPROVED REPORT EKG Measurement Heart [id number] <Conclusion> Sinus bradycardia Otherwise normal ECG
== END 2017-06-24 18:44 | disposition home or self-care (01) | DRG 180 ==
LOC: C.ER 07:39 → C.9E 09:21 → C.3T 10:20
PROVIDERS: ADMIT Surgery; ATTEND Surgery
DX: K56.600 Partial intestinal obstruction, unspecified as to cause (principal); E87.2 Acidosis; K51.50 Left sided colitis without complications; K27.9 Peptic ulcer, site unspecified, unspecified as acute or chronic, without hemorrhage or perforation; K29.00 Acute gastritis without bleeding; Z98.51 Tubal ligation status